=== PATIENT | male | born 1975 | race African-American/Black ===

== ENCOUNTER 2016-08-13 07:32 | Inpatient (IN) ==
--- NOTE | 2016-08-13 08:11 | Emergency Department Note ---
Megan Carlton Hilary, am scribing for, and in the presence of, Kaushal Negro MD 08: 02. Sruthi Carlton James D, MD, personally performed the services described in this documentation, ascribed by Flor Guzman in my presence, and it is both accurate and complete . Arrival - Arrival Chief Complaint: Non-Specific Stated Complaint: possible blood clot leg ED Nursing Triage Note: right leg pain - s/p CVA x 1 month ago - pt takes xaralto - SOB - pt states that he has 2 blood clots in his lungs per MD at [place] where he was when he had CVA Mode of Arrival: Wheelchair Limitations: No Limitations Source: Patient, RN Notes Reviewed Time Seen by Provider: 08/13/16 07:48 - History of Present Illness HPI Narrative: Pt is a 40 y/o black male presenting to the ED with c/o a swollen right leg which onset 2 weeks ago. Pt takes Xarelto and states that he takes it as prescribed but has only been back on it for one month. Pt confirms swelling, calf pain and SOB but denies pain in toes. Pt states that he has 2 blood clots in his lungs per MD at [place] where he was when he had CVA. No other complaints or problems stated in the ED. Pt has a PMHx of Onset (ago): week(s) Allergies/Adverse Reactions: Allergies Allergy/AdvReac Type Severity Reaction Status Date / Time lisinopril Allergy Swelling Verified 08/13/16 07:38 of Lip/Tongue/Throat Home Medications: Home Medications Medication Instructions Recorded Confirmed Type Digoxin Tab [Lanoxin Tab] 0.125 mg PO DAILY@1300 08/13/16 08/13/16 History Furosemide Tab [Lasix Tab] 80 mg PO BID DIURETIC 08/13/16 08/13/16 History Isosorbide Dinitrate 10 mg PO BID 08/13/16 08/13/16 History Metoprolol Tartrate 25 mg PO DAILY 08/13/16 08/13/16 History Rivaroxaban [Xarelto] 15 mg PO BID W/MEALS 08/13/16 08/13/16 History Spironolactone 12.5 mg PO DAILY 08/13/16 08/13/16 History hydrALAZINE TAB [Apresoline Tab] 25 mg PO TID 08/13/16 08/13/16 History Review of System - Review of System 12 point system: reviewed and no additional remarkable complaints except as stated - Review of System Constitutional: Absent: fever Respiratory: Present: respiratory distress (SOB) Musculoskeletal: Present: leg pain (right leg swelling) Medical,Surgical,& Family Hx - Medical History Cardio: History of: CHF, Hypertension Neurology: History of: Cerebrovascular Accident Respiratory: History of: Pulmonary Embolism - Social History Smoking Status: Current every day smoker Frequency of Alcohol Use: Occasionally Type of Drug Use: None Exam Physical Examination: GENERAL: This is a well-nourished, well-developed in no apparent distress. Smells of alcohol. VITAL SIGNS: Temperature: 97.1 Pulse: 110 Respiratory: 20 Blood Pressure: 131/ 103 O2SAT: 99 HEENT: Head is normocephalic and atraumatic. Pupils are equally round and reactive to light. Extraocular movement are intact. Oropharynx is benign with moist mucous membranes. NECK: Neck is soft and supple without tenderness. There are no masses. There is no lymphadenopathy. LUNGS: Lungs are clear to auscultation bilaterally. Chest rises symmetrically. There is no chest wall tenderness. CV: Heart is regular rate and rhythm without murmurs, rubs, or gallops. ABDOMEN: Abdomen is soft, non-tender to palpation. There are no abnormal masses palpated. There is no organomegaly. Bowel sounds are present and active. SKIN: Skin is warm and dry. No rash. EXTREMITIES: Patient has full range of motion without tenderness. There is edema in right lower extremity, tender to palpation in his right calf. NEUROLOGIC: Awake, alert, and oriented x4. Cranial nerves II through XII are grossly intact. There are no motorsensory deficits. PSYCHIATRIC: Normal affect. Normal mood. Vital Signs: Vital Signs Temperature 97.1 F L 08/13/16 07:38 Pulse Rate 102 H 08/13/16 09:00 Respiratory Rate 20 08/13/16 09:00 Blood Pressure 146/101 08/13/16 09:00 O2 Sat by Pulse Oximetry 99 08/13/16 09:00 Course Course Narrative: CT scan obtained from [facility] from previous hospitalization reveals that when compared to present CT pulmonary emboli are worse with increasing infiltrate/pulmonary infarct in the right lower lobe. I had a long discussion with the patient including discussing with him that he has a life-threatening problem. Patient admits that he has been noncompliant with his medications. I told the patient he need to be admitted to the hospital and needed an IVC filter. Also told the patient and he needs to discontinue alcohol use given that he needs chronic anticoagulation. The patient refused admission and signed out AMA. - Consultations Consultation #1: Discussed with hospitalist. Patient will be admitted to their service. Time: 13:17 Results - Labs CBC & BMP: 08/13/16 08:11 08/13/16 08:11 Lab Results: I have reviewed the patients labs Labs: Laboratory Tests 08/13/16 08:11 WBC 5.8 RBC 4.84 Hgb 13.3 L Hct 38.8 L MCV 80.2 L Baso % (Auto) 1.0 H Laboratory Tests 08/13/16 08/13/16 08:11 08:11 Sodium 139 Potassium 3.9 Chloride 106 Carbon Dioxide 20 L Anion Gap 16.9 H Glucose 118 H Serum Alcohol 141 - Diagnostic Findings Procedure: CT - chest: image reviewed by me, report reviewed by me (Bilateral pulmonary emboli), Ultrasound: report reviewed by me (US venous doppler LE RT: Rigth lower extremity deep venous thrombosis) Disposition Clinical Impression: Chronic anticoagulation, Alcohol abuse, Bilateral pulmonary embolism, Medical non-compliance Case discussed with: patient Disposition: Still a Patient Condition: Stable Time of Disposition: 13:16
[2016-08-13 08:24] LABS: Basophils # 0.1 10*3/uL (0.0-0.2); Eosinophils % 0.3 % (0.00-10.9); Hematocrit 38.8 VOL% (42.0-52.0); Hemoglobin 13.3 GM/DL (14.0-18.0); Immature Granulocytes % 0.3 %; Immature Granulocytes Absolute 0.02 #; Lymphocytes % 33.6 % (21.2-54.2); Mean Corpuscular HGB Conc 34.3 GM/DL (32-36); Mean Corpuscular Hemoglobin 28 PG (27-34); Mean Corpuscular Volume 80.2 FL (87-102); Mean Platelet Volume 9.6 FL (9.6-12.0); Monocytes # 0.5 10*3/uL (0.11-0.8); Monocytes % 7.8 % (1.7-12.7); Neutrophils # 3.3 10*3/uL (1.4-7.4); Platelet Count 347 T/CUMM (130-400); Red Blood Count 4.84 MC/CUMM (3.8-5.5); Red Cell Distribution Width 16.2 % (9.3-17.3); White Blood Count 5.8 T/CUMM (4-12)
--- NOTE | 2016-08-13 08:36 | Ultrasound Report ---
US venous doppler LE RT Indication: RLE edema. Comparison: None. Technique: Grayscale, spectral, and color Doppler interrogation of the right lower extremity veins was performed. Augmentation and compression was performed. Findings: Grayscale, color Doppler, and pulsed Doppler evaluation of the veins of the right lower extremity demonstrate occluding the venous thrombosis in the right superficial femoral vein and popliteal vein. IMPRESSION: Right lower extremity deep venous thrombosis. Findings discussed with Dr. Negro at end of exam. PROCEDURE INTERPRETED AT [facility] DEPARTMENT OF RADIOLOGY Final Report Signed by: Dr Obi Drake
[2016-08-13 08:37] LABS: INR 1.3; PT Patient Result 13.8 SECS; Partial Thromboplastin Time 25.9 SECS (0-40)
[2016-08-13 08:53] LABS: Calcium 8.5 MG/DL (8.5-10.1); Osmolality,Calculated 277.5 MOS/KG (273-304); Potassium 3.9 MMOL/L (3.5-5.1)
--- NOTE | 2016-08-13 12:42 | CT Report ---
Exam: CT chest with contrast, PE study Date: 08/13/2016 Comparison: 05/27/2016 Reason: Shortness of breath, DVT Technique: Axial images of the chest were obtained after administration of 80 cc of IV Omnipaque 350 intravenous contrast. Coronal reformatted images were also acquired. The study was performed per pulmonary embolism protocol. Total DLP: 426.60 Findings: The heart remains significantly enlarged with cardiac fat pads. The ascending aorta measures 41 mm in diameter with no contrast in the aorta. Multiple progressive filling defects are noted in the pulmonary arteries. The findings are more extensive in the distal right main pulmonary artery where there is a saddle embolus with extension primarily in the right upper lobe pulmonary artery. Smaller filling defects are noted in the right middle lobe, right lower lobe, left upper lobe, and left lower lobe pulmonary arteries. Mediastinal and hilar nodes which remain borderline in size to minimally enlarged. No acute osseous findings are noted. Small bilateral pleural effusions are noted with findings smaller on the right. Diffuse groundglass opacities are noted. Persistent pulmonary opacities especially in the right lower lobe with the largest finding involving a 43 mm area. Some of the additional parenchymal findings appear less prominent. Persistent tiny noncalcified pulmonary nodules are noted with additional subsegmental atelectasis Impression: Progressive bilateral pulmonary emboli with findings more pronounced on the right including a saddle embolus in the distal right main pulmonary artery. Multifocal parenchymal findings which could be related to pulmonary infarction but there are indeterminate pulmonary opacities especially in the right lower lobe which make it difficult to exclude masses. Follow-up chest CT recommended. Additional cardiomegaly, mediastinal and hilar nodes which are borderline in size to minimally enlarged, and small pleural effusions. Findings were discussed with Dr. Negro at 9:45 AM on 08/13/2016. Critical test results This CT exam was performed using one or more the following dose reduction techniques: Automated exposure control, adjustment of the MA and/or KV according to patient size, or use of iterative reconstruction technique. PROCEDURE INTERPRETED AT [facility] DEPARTMENT OF RADIOLOGY Final Report Signed by: Dr. Jennifer Berg
[2016-08-13] MEDS ORDERED: METOPROLOL TARTRATE 5 MG/5 ML VIAL IV STA (13:14)
[2016-08-13] MEDS ORDERED: METOPROLOL TARTRATE 5 MG/5 ML VIAL IV ONE (13:17)
--- NOTE | 2016-08-13 15:24 | Hospitalist History & Physical ---
<Dennis Craven - Last Filed: 08/13/16 15:10> Assessment and Plan - Time spent with patient Time spent with patient: Greater than 30 minutes Time spent discussing smoking cessation with patient: more than 10 minutes (1) DVT (deep venous thrombosis) Status: Acute Assessment and plan: Venous doppler shows right lower extremity DVT. Patient is already prescribed Xarelto and admits to medical noncompliance. He has agreed to having an IVC filter placed by IR today. We spend greater than 45 min discussing the negative effects of not taking his medication and convincing him to stay overnight for treatment and filter placement. IR was consulted and plans to place the filter today. We will continue the patient's Xarelto while here. We will also draw labs for hypercoagulability studies. Current Visit: Yes (2) Chronic anticoagulation Status: Acute Assessment and plan: Patient has been prescribed Xarelto, however he admits to medical noncompliance. INR is 1.3 today. Current Visit: Yes (3) Alcohol abuse Status: Acute Current Visit: Yes (4) Bilateral pulmonary embolism Status: Acute Current Visit: Yes (5) Medical non-compliance Status: Acute Current Visit: Yes History of Present Illness Chief complaint: SOB/rt leg pain and swelling History of present illness: Mr. Daniels is a 40 year old male with a past medical history significant for pulmonary emboli, CVA, tobaccoism and alchohol abuse who presents to the ER with complaints of shortness of breath and right leg pain with swelling x 2 weeks. The patient came to the [facility] after leaving [facility] where he was told that he has a DVT and "two clots" on his lungs. The patient says he already knew this as he has seen multiple doctors at different hospitals who have "not done anything about it" other than "give him pills". He admits to medical noncompliance stating his reasoning being "Xarelto is not good for you if you're in the sun a lot". He initially tried to leave A, but agreed to stay overnight after talking at length about the negative effects of not taking the NOAC. We offered the patient consultation with IR for possible IVC Filter placement to prevent the DVT from traveling to his lungs. On exam, the patient was noticeably suspicious. He admits to having an ongoing cough for the last four months, increasing shortness of breath, and pain and swelling in his right leg. All other systems were unremarkable. He will be admitted to the hospital medicine service for further evaluation, treatment and IVC filter placement. He is a full code. The case has been discussed with Dr. Negro, ER physician, Dr. Faulkner, radiologist, and Dr. Pisano, admitting physician. Home Medications Medication Instructions Recorded Confirmed Type Digoxin Tab [Lanoxin Tab] 0.125 mg PO DAILY@1300 08/13/16 08/13/16 History Furosemide Tab [Lasix Tab] 80 mg PO BID DIURETIC 08/13/16 08/13/16 History Isosorbide Dinitrate 10 mg PO BID 08/13/16 08/13/16 History Metoprolol Tartrate 25 mg PO DAILY 08/13/16 08/13/16 History Rivaroxaban [Xarelto] 15 mg PO BID W/MEALS 08/13/16 08/13/16 History Spironolactone 12.5 mg PO DAILY 08/13/16 08/13/16 History hydrALAZINE TAB [Apresoline Tab] 25 mg PO TID 08/13/16 08/13/16 History Allergies Allergy/AdvReac Type Severity Reaction Status Date / Time lisinopril Allergy Swelling Verified 08/13/16 07:38 of Lip/Tongue/Throat Medical,Surgical,& Family Hx - Medical History Cardio: History of: CHF, Hypertension Neurology: History of: Cerebrovascular Accident Respiratory: History of: Pulmonary Embolism - Social History Smoking Status: Current every day smoker (10-12 cigarettes daily) Frequency of Alcohol Use: Frequently Type of Drug Use: None Marital Status: Single Lives With:: Uncle Functional capacity: independent ambulation - Constitutional Constitutional: Absent: chills, excessive sweating, fever(s), headache(s) - EENT Eyes: Absent: blurry vision, loss of vision Ears: Absent: decreased hearing, ear discharge, ear pain Nose, mouth and throat: Absent: headache(s), neck pain, sore throat - Cardiovascular Cardiovascular: Present: dyspnea, dyspnea on exertion. Absent: chest pain at rest, chest pain with activity, edema, radiating jaw, neck or arm pain, palpitations - Respiratory Respiratory: Present: cough, dyspnea. Absent: wheezing, pain on inspiration - Gastrointestinal Gastrointestinal: Absent: abdominal pain, change in bowel habits, constipation, diarrhea, nausea, vomiting - Genitourinary Genitourinary: Absent: dysuria, flank pain - Musculoskeletal Musculoskeletal: Absent: back pain, myalgias - Neurological Neurological: Absent: abnormal gait - Psychiatric Psychiatric: Present: anxiety. Absent: confusion, depression - Endocrine Endocrine: Absent: cold intolerance, fatigue, heat intolerance - Hematologic/Lymphatic Hematologic/Lymphatic: Absent: easy bleeding, easy bruising Exam - Constitutional Exam: General appearance: obese, no acute distress - Head Head exam: Present: normocephalic, atraumatic - Eye Eye exam: Present: EOMI. Absent: conjunctival injection, nystagmus Pupils: Present: ALEXA, normal accommodation - ENT ENT exam: Present: normal exam, normal external ear exam - Neck Neck exam: Present: normal inspection. Absent: lymphadenopathy, tenderness, thyromegaly - Respiratory Respiratory exam: Present: decreased breath sounds. Absent: rales, rhonchi, wheezes - Cardiovascular Cardiovascular exam: Present: regular rate and rhythm. Absent: carotid bruit, gallop, rubs - GI/Abdominal GI/Abdominal exam: Present: normal bowel sounds. Absent: ascites, distended, mass - Extremities Exam Extremities exam: Present: normal inspection, normal capillary refill. Absent: edema - Back Exam Back exam: Absent: CVA tenderness (L), CVA tenderness (R) - Neurological Exam Neurological exam: Present: alert, oriented X3 - Psychiatric Psychiatric exam: Present: anxious - Skin Skin exam: Present: normal color, warm, dry Results - Labs CBC & BMP: 08/13/16 08:11 08/13/16 08:11 Lab Results: I have reviewed the past 24 hour labs - Diagnostic Findings Procedure: Chest x-ray: image reviewed by me, report reviewed by me, CT - chest : image reviewed by me, report reviewed by me <Emili Pisano - Last Filed: 08/13/16 18:07> Assessment and Plan (1) Bilateral pulmonary embolism Status: Acute Assessment and plan: Status post filter. Discussed case with Dr. Li but patient is not a candidate for a ekos. Error in the report from radiology there is no saddle embolus per discussion with Dr. Faulkner, continue xarelto. if he does not take it. Current Visit: Yes (2) Nicotine addiction Status: Acute Assessment and plan: nicotine patch Current Visit: Yes (3) Alcohol abuse Status: Acute Assessment and plan: alcohol tid with meals Current Visit: Yes (4) DVT (deep venous thrombosis) Status: Acute Assessment and plan: s/p filter today, xarelto 15 mg po bid Current Visit: Yes (5) Medical non-compliance Status: Acute Assessment and plan: this will be a constant problem whether due to alcoholism or ignorance Current Visit: Yes History of Present Illness History of present illness: Mr. Daniels is a 40 year old male seen and examined. Spent over one hour just convincing him to stay. Dr. Faulkner plans to place on IVC filter. He has a full bottle of xarelto that he was not taking. Darian hypercoagable workup in the Er. Patient intoxicated but drinks hard liquor to excess and smokes Medical,Surgical,& Family Hx - Surgical History Cardiac Surgeries: Sugical HX of: Cardiac Catheterization - Family History Family History: Reports;: Family Diabetes, Family Heart Disease Denies;: Family Stroke Exam - Constitutional Vitals: Period Temp Pulse Resp BP Sys/Crystal Pulse Ox Last 24 Hr 97.9 F 102-106 18-22 135-168/109-122 96-98 Results - Labs CBC & BMP: 08/13/16 08:11 08/13/16 08:11 - Diagnostic Findings Procedure: CT - chest: report reviewed by me (Bilateral pulmonary emboli but no evidence of saddle embolus per discussion with Dr. Faulkner.), Ultrasound: report reviewed by me (Right lower extremity DVT)
--- NOTE | 2016-08-13 15:44 | Post Interventional Procedure ---
Pre-op diagnosis: Noncompliant anticoag, PE, DVT Post-op diagnosis: same Procedure: IVC filter, right groin access Contrast: Omni 350, 20 cc Flouroscopy: 0.6 Radiologist: Jimmy Faulkner Anesthesia: local Specimens: none sent Estimated blood loss: none Complications: none Condition: stable Assessment and Plan - Time spent with patient Time spent with patient: Less than 30 minutes
[2016-08-13] MEDS ORDERED: ACETAMINOPHEN 325 MG TABLET PO PRN (16:02)
--- NOTE | 2016-08-13 16:03 | Interventional Radiology Rpt ---
IR IVC filter placement Indication: Pulmonary embolus. Right leg DVT, acute. Patient has had previous thromboembolic events and is noncompliant on outpatient anticoagulation with Xarelto. IVC FILTER PLACEMENT Description: The risks (including but not limited to IVC filter fracture, filter migration, IVC thrombosis with resulting bilateral lower extremity thrombosis, conversion from retrievable to a permanent filter), benefits and alternatives were discussed at length with the patient. All questions were answered. Informed consent was obtained. A formal timeout was performed. Maximum sterile barrier technique was used. The right groin was prepped and draped in a sterile fashion. Sonographic evaluation demonstrates a patent and compressible right common femoral vein. 5 cc 1% lidocaine was infused subcutaneously. Under sonographic guidance, a micropuncture needle was advanced into the target vein. A captured sonographic image documents the position of the needle. The needle was exchanged over a wire for a vascular dilator with the tip in the distal IVC. An inferior venacavogram was performed. Normal anatomy was present. The lowest renal vein inflow was identified. The dilator was exchanged over a wire for a Starr IVC filter sheath. The filter was then advanced and deployed such that the apex is at the lowest renal vein inflow. The deployment apparatus was removed and hemostasis achieved with manual compression. Medications: None. Contrast: Omnipaque 350, 20 cc. Fluoroscopy: 0.6 minutes. Impression: Infrarenal IVC filter placement as described. Lengthy discussion with the patient regarding retrieval of the filter later date, up to 3 months, if he is compliant on anticoagulation as an outpatient. PROCEDURE INTERPRETED AT [facility] DEPARTMENT OF RADIOLOGY Final Report Signed by: Jimmy Faulkner M.D.
[2016-08-13] MEDS: PANTOPRAZOLE 40 MG TABLET PO SCH (17:25)
[2016-08-13] MEDS: RIVAROXABAN 15 MG TABLET PO SCH ×2 (17:25→17:26)
[2016-08-13] MEDS: NICOTINE 21 MG/24 HR PATCH TRANSDERM SCH (19:04)
[2016-08-13 19:18] LABS: Albumin 2.4 G/DL (3.4-5.0); Bilirubin,Direct 0.5 MG/DL (0.0-0.20); Bilirubin,Indirect 0.5 MG/DL (0.0-1.0); Total Protein 6.5 G/DL (6.4-8.3)
[2016-08-14 05:21] LABS: Basophils # 0.1 10*3/uL (0.0-0.2); Basophils % 1.3 % (0.0-0.8); Eosinophils % 0.2 % (0.00-10.9); Immature Granulocytes % 0.2 %; Immature Granulocytes Absolute 0.01 #; Lymphocytes # 2.4 10*3/uL (1.4-4.0); Lymphocytes % 37.9 % (21.2-54.2); Mean Corpuscular HGB Conc 33.3 GM/DL (32-36); Mean Corpuscular Hemoglobin 27 PG (27-34); Mean Corpuscular Volume 81.6 FL (87-102); Mean Platelet Volume 9.8 FL (9.6-12.0); Monocytes # 0.7 10*3/uL (0.11-0.8); Monocytes % 10.5 % (1.7-12.7); Neutrophils # 3.1 10*3/uL (1.4-7.4); Neutrophils % 49.9 % (38.7-73.9); Platelet Count 331 T/CUMM (130-400); Red Blood Count 4.78 MC/CUMM (3.8-5.5); Red Cell Distribution Width 16.4 % (9.3-17.3); White Blood Count 6.2 T/CUMM (4-12)
[2016-08-14 05:56] LABS: Calcium 8.8 MG/DL (8.5-10.1); Osmolality,Calculated 275.7 MOS/KG (273-304); Potassium 4.4 MMOL/L (3.5-5.1)
[2016-08-14] MEDS: RIVAROXABAN 15 MG TABLET PO SCH (08:27)
[2016-08-14] MEDS: PANTOPRAZOLE 40 MG TABLET PO SCH (08:28)
--- NOTE | 2016-08-14 11:17 | Discharge Summary ---
Hospital Course - Hospital Course Hospital Course: 40-year-old -Finnish male presents to the emergency room with complaints of right lower extremity swelling and pain. Ultrasound showed that he had an extensive DVT in right superficial femoral vein and popliteal vein. Chest CT reveals he has bilateral pulmonary emboli with saddle embolus on the right. The films were reviewed by Dr. Faulkner and he doesn't have a saddle embolus. IVC filter was placed by Dr. Faulkner on August 13, 2016. Patient was originally diagnosed with a clot at [facility] in March and was given Xarelto but chose to not take it. Patient is an active smoker every day approximately 2 packs a day and consumes an excess amount of alcohol on a daily basis including hard liquor and beer. Patient was actively intoxicated in the emergency room. We have emphasized the importance of him taking his Xarelto. He is not requiring any supplemental oxygen at this time. While the filter is in place and only prevents large clots from floating up. If he continues to clot his leg will continue to swell. We have warned him without anticoagulation that the clots could take his life and he indicates his understanding. He still has his Xarelto that he never took for 15 mg twice a day. He will take this for 21 days and then transition to 20 mg once a day. He does not have insurance. We will send him to the [facility]. We have filled out a form to send to the drug company to see if we can get Xarelto for him for free. Patient has to complete the form as we have already done our portion. If he does not mail it in, we cannot help him. I have done a hypercoagulable workup on him which will tell us if he needs anticoagulation for life. Doubt he will be compliant with follow-up or taking his medication. The results of the hypercoagulable workup should be available in approximately 3-5 days. Discharged home - Time spent with patient Time with patient DS: Less than 30 minutes (25 min) Diagnosis - Discharge Diagnosis (1) Bilateral pulmonary embolism Status: Acute (2) Nicotine addiction Status: Acute (3) Alcohol abuse Status: Acute (4) DVT (deep venous thrombosis) Status: Acute (5) Medical non-compliance Status: Acute Discharge Plan - Discharge Data Disposition: Disch To Home/Self Care Condition at Discharge: Stable Discharge Diet: heart healthy Activity: resume usual activities as tolerated Hygiene: no restrictions Driving: other (never) - Discharge Medications New Carvedilol [Coreg] 6.25 mg PO BID #60 tablet Nicotine 21 mg/24 Hr Patch [Nicoderm CQ 21 mg/24 hr Patch] 1 patch TRANSDERM DAILY #42 patch Continue Digoxin Tab [Lanoxin Tab] 0.125 mg PO DAILY@1300 #30 tablet Rivaroxaban [Xarelto] 15 mg PO BID W/MEALS #42 Spironolactone 12.5 mg PO DAILY #30 tablet Changed Furosemide Tab [Lasix Tab] 40 mg PO DAILY #30 tablet Discontinued Metoprolol Tartrate 25 mg PO DAILY hydrALAZINE TAB [Apresoline Tab] 25 mg PO TID Isosorbide Dinitrate 10 mg PO BID - Follow Up or Referral Follow Up: [facility] [Provider Group] - 2 Weeks (follow up on lab work for hypercoagable workup ) - Forms/Instructions Additional Discharge Instructions: needs to stop smoking. Continue xarelto 15 mg po bid for 21 days then switch to xarelto 20 mg daily for 6 months. Prescription written needs to complete the form and maily it in. Gradually cut down on drinking if able. Need to follow up on blood work to determine if needs anticoagulation for life. Exam - Constitutional Vitals: Period Temp Pulse Resp BP Sys/Crystal Pulse Ox Last 24 Hr 97.6 F-98.6 F 102-106 18-22 135-168/101-125 96-100 General appearance: normal weight, no acute distress - Respiratory Respiratory exam: Present: clear to auscultation bilaterally. Absent: rhonchi, wheezes - Cardiovascular Cardiovascular exam: Present: regular rate and rhythm. Absent: systolic murmur - GI/Abdominal GI/Abdominal exam: Present: normal bowel sounds, soft. Absent: tenderness - Neurological Exam Neurological exam: Present: alert, oriented X3 Discharge Results Procedures and tests throughout hospitalization: Pending Orders 08/13/16 08:11 Phospholipid Ab, IgG/M Stat 08/13/16 14:49 Anti-Thrombin III Stat Lupus Anticoag Prof Stat Thrombophilia Prof Stat Labs on day of discharge: Labs from last 24 hours 08/14/16 08/14/16 08/13/16 05:02 05:02 18:14 WBC 6.2 RBC 4.78 Hgb 13.0 L Hct 39.0 L MCV 81.6 L MCH 27 MCHC 33.3 RDW 16.4 Plt Count 331 MPV 9.8 Neut % (Auto) 49.9 Lymph % (Auto) 37.9 [place] % (Auto) 10.5 Eos % (Auto) 0.2 Baso % (Auto) 1.3 H Neut # (Auto) 3.1 Lymph # (Auto) 2.4 [place] # (Auto) 0.7 Eos # (Auto) 0.0 Baso # (Auto) 0.1 Immature Gran % 0.2 Nucleated RBC % 0.0 Immature Gran # 0.01 Nucleated RBCs # 0.00 Sodium 138 Potassium 4.4 Chloride 106 Carbon Dioxide 23 Anion Gap 13.4 BUN 15 Creatinine 0.90 GFR Calculation 26 BUN/Creatinine Ratio 16.00 Glucose 104 Calculated Osmolality 275.7 Calcium 8.8 Total Bilirubin 1.00 Direct Bilirubin 0.50 H Indirect Bilirubin 0.5 AST 36 ALT 26 Alkaline Phosphatase 152 H Total Protein 6.5 Albumin 2.4 L DS: Provider Date of admission: 08/13/16 13:36 Primary care physician: . No PCP Attending physician on admission: Emili Pisano MD Consults: 08/13/16 16:08 Consult to Pharmacy [CONS] Routine Reason for Pharmacy Consult: Adjust Meds Renal Funct Discharging clinician: Emili Pisano MD
[2016-08-14 12:05] VITALS: BP 162/102
[2016-08-14] MEDS: NICOTINE 21 MG/24 HR PATCH TRANSDERM SCH (13:19)
--- NOTE | 2016-08-14 14:31 | ECHO Report ---
Abilio Daniels Exam Date: 08/14/2016 09:07 Referring Physician: Technologist: Danielle Sandoval RDCS Age: 40 Ht (in): 72 Wt (lb): 225 Gender: M Exam Location: [facility] Echo Indications: DVT, Chronic anticoagulation, Alcohol abuse, Bilateral pulmonary embolism, Cough, Essential (primary) hypertension, Nicotine dependence, cigarettes, uncomplicated BP: 135 / 109 HR: 111 Rhythm: Sinus Technical Quality: IMPRESSIONS 1. Left ventricle is moderately dilated with severe global hypokinesis and ejection fraction of 15%. 2. Mildly dilated right ventricle with global hypokinesis. 3. Moderately dilated right and left atria. 4. Mild mitral valve regurgitation but otherwise normal valve. 5. Moderate tricuspid valve regurgitation but morphologically normal valve. 6. Moderate pulmonic valve regurgitation. 7. Moderate to severely elevated right-sided pressures. MEASUREMENTS (Male / Female) Normal Values 2D ECHO LV Diastolic Diameter PLAX 6.6 cm 4.2 - 5.9 / 3.9 - 5.3 cm LV Systolic Diameter PLAX 5.1 cm LV Fractional Shortening PLAX 23.0 % IVS Diastolic Thickness 1.4 cm 0.6 - 1.0 / 0.6 - 0.9 cm LVPW Diastolic Thickness 1.1 cm 0.6 - 1.0 / 0.6 - 0.9 cm RV Internal Dim ED PLAX 3.7 cm Aortic Root Diameter 3.5 cm LA Systolic Diameter LX 4.2 cm 3.0 - 4.0 / 2.7 - 3.8 cm DOPPLER TR Peak Velocity 366.0 cm/s TR Peak Gradient 53.6 mmHg FINDINGS Left Ventricle Moderately increased left ventricular cavity size. Mild left ventricular hypertrophy. Left ventricular ejection fraction is estimated at 15 %. Right Ventricle Mildly increased right ventricular size with global hypokinesis. Right Atrium Moderately increased right atrial size. Left Atrium Moderately increased left atrial size. Mitral Valve Morphologically normal mitral valve. Mild mitral valve regurgitation. Aortic Valve Morphologically normal aortic valve without significant sclerosis or stenosis. There is no aortic regurgitation. Tricuspid Valve Morphologically normal tricuspid valve. Moderate tricuspid valve regurgitation. Tricuspid regurgitation velocities suggest a PAP of 64 mmHg. Pulmonic Valve Morphologically normal pulmonic valve. Moderate pulmonary valve regurgitation. Pericardium Normal pericardium without effusion. Aorta Normal ascending aorta dimension. Jimmy Coello MD (Electronically Signed) Final Date: 14 Aug 2016 14:28
[2016-08-16 11:45] LABS: DRVVT Confirmation 0.9 ratio (0.0 - 1.1); DRVVT Mix Ratio (Mayo Reflex) 1.2 ratio (0.0 - 1.1); PT Mix 1:1 (Mayo Reflex) 12.9 sec
[2016-08-16 13:50] LABS: Phospholipid Ab IgM, S < 9.4 MPL
[2016-08-21 14:32] LABS: DRVVT Screen Ratio 1.5
[2016-08-21 14:36] LABS: Protein C Activity Plasma 57 %
[2016-08-21 14:41] LABS: Thrombin Time (Bovine), P 20
[2016-08-21 14:42] LABS: Fibrinogen, P 485
[2016-08-21 15:08] LABS: INR 1.8
[2016-08-23 13:41] LABS: PTNT Reviewed By SEE COMMENTS
[2016-08-23 14:46] LABS: Coag Factor VII Assay, P 33
== END 2016-08-14 13:20 | disposition home or self-care (01) | DRG 252 ==
LOC: N.ED 07:32 → N.EDINP 13:36 → N.TELEN 16:14
PROVIDERS: ADMIT Internal Medicine; ATTEND Internal Medicine

== ENCOUNTER 2016-11-27 17:12 | Inpatient (IN) ==
[2016-11-27] MEDS ORDERED: ALBUTEROL/IPRATROPIUM 3 ML NEB RESP TX STA (17:33)
[2016-11-27] MEDS ORDERED: methylPREDNISolone SOD SUC 125 MG/2 ML VIAL IV STA (17:33)
--- NOTE | 2016-11-27 17:38 | Emergency Department Note ---
Arrival - Arrival Chief Complaint: Shortness of Breath ED Nursing Triage Note: pt left [facility] from [place] yesterday. pt c/o sob and dry cough. states sob is worse with walking around Mode of Arrival: Stretcher Limitations: No Limitations Source: Patient Time Seen by Provider: 11/27/16 17:33 - History of Present Illness HPI Narrative: This 41-year-old black male presents with complaints of shortness of breath with dyspnea on exertion and at rest without chest pain, nausea, vomiting, chills, fever, or purulence. The patient does complain of a dry cough and does have a history of pulmonary embolus diagnosed 18 months ago and treated for 1 year with Xarelto. Most notable is the fact that he left [facility] yesterday AMA after 2 weeks in hospital for treatment of pneumonia and other respiratory problems. Currently the patient appears in no acute medical distress. Subsequent contact with [facility] records reveals the patient was not in that hospital the last 2 weeks but was hospitalized there in June. Onset (ago): week(s) (Patient presents 2 weeks post onset of symptoms) Allergies/Adverse Reactions: Allergies Allergy/AdvReac Type Severity Reaction Status Date / Time lisinopril Allergy Swelling Verified 08/13/16 07:38 of Lip/Tongue/Throat Home Medications: Home Medications Medication Instructions Recorded Confirmed Type Carvedilol [Coreg] 6.25 mg PO BID #60 tablet 08/14/16 11/27/16 Rx Digoxin Tab [Lanoxin Tab] 0.125 mg PO DAILY@1300 #30 tablet 08/14/16 11/27/16 Rx Rivaroxaban [Xarelto] 15 mg PO BID W/MEALS #42 08/14/16 11/27/16 Rx Aspirin EC Tab 81 mg PO BID 11/27/16 11/27/16 History Furosemide Tab [Lasix Tab] 40 mg PO QAM 11/27/16 11/27/16 History Spironolactone 12.5 mg PO QAM 11/27/16 11/27/16 History Review of System - Review of System 12 point system: reviewed and no additional remarkable complaints except as stated - Review of System Constitutional: Present: as per HPI Respiratory: Present: as per HPI Cardiovascular: Present: as per HPI Gastrointestinal: Present: as per HPI Medical,Surgical,& Family Hx - Medical History Cardio: History of: CHF, Hypertension Neurology: History of: Cerebrovascular Accident Respiratory: History of: Pulmonary Embolism - Surgical History Cardiac Surgeries: Sugical HX of: Cardiac Catheterization - Family History Family History: Reports;: Family Diabetes, Family Heart Disease, Family Hypertension Denies;: Family Stroke - Social History Smoking Status: Current every day smoker Frequency of Alcohol Use: Occasionally Type of Drug Use: None Exam Physical Examination: GENERAL: Well developed, well nourished black male in no acute distress. HEENT: Normocephalic. No trauma. Moist mucous membranes. EOMI. PERRLA. ENT NML NECK: Supple. No adenopathy. CARDIAC: Regular. No murmurs. Heart rate 102 CHEST: Scattered expiratory rhonchi. No respiratory distress. O2 sat 94% ABDOMEN: Soft. Nontender. Active bowel sounds. EXTREMITIES: No trauma. Normal ROM. No pedal edema. SKIN: No diaphoresis. No rash. NEURO: Alert. Oriented 3. 3 out of 5 right upper extremity and right lower extremity strength compared to 5 out of 5 left-sided extremities, a constant finding since stroke 4 years ago. Vital Signs: Vital Signs Temperature 97.1 F L 11/27/16 17:18 Pulse Rate 99 H 11/27/16 18:20 Respiratory Rate 19 11/27/16 18:20 Blood Pressure 129/90 11/27/16 18:15 O2 Sat by Pulse Oximetry 98 11/27/16 18:20 Course - Reevaluation(s) Reevaluation #1: Advised patient to the need for hospitalization given his pulmonary situation. - Consultations Consultation #1: Discussed with hospitalist service who will admit for further evaluation treatment. Results - Labs CBC & BMP: 11/27/16 17:43 11/27/16 17:43 Labs: I have reviewed the laboratory and noted the bump in troponins and increased BNP. - Impressions EKG: Sinus rhythm at 99 with left atrial enlargement, normal AK interval, normal QRS duration, as well as evidence of old inferior AK. Diffuse nonspecific ST changes with no acute injury pattern noted. - Diagnostic Findings Procedure: Chest x-ray: image reviewed by me, report reviewed by me ( Cardiomegaly/right middle and lower lobe infiltrate), CT - chest: image reviewed by me, report reviewed by me (CTA revealed no acute PTE but chronic thrombus to the right lower lobe pulmonary artery but more significant is right infrahilar mass with cavity as well as severe cardiomegaly.) Disposition Clinical Impression: Right infrahilar cavitary mass, Congestive heart failure, Recent PTE Case discussed with: patient Disposition: Still a Patient Condition: Guarded Time of Disposition: 21:37
[2016-11-27 17:53] LABS: Basophils # 0.1 10*3/uL (0.0-0.2); Basophils % 0.5 % (0.0-0.8); Hemoglobin 13.8 GM/DL (14.0-18.0); Immature Granulocytes % 0.8 %; Immature Granulocytes Absolute 0.08 #; Lymphocytes % 20.6 % (21.2-54.2); Mean Corpuscular HGB Conc 35.4 GM/DL (32-36); Mean Corpuscular Hemoglobin 28 PG (27-34); Mean Corpuscular Volume 78.3 FL (87-102); Mean Platelet Volume 10.2 FL (9.6-12.0); Monocytes # 1.4 10*3/uL (0.11-0.8); Neutrophils # 6.3 10*3/uL (1.4-7.4); Neutrophils % 64.1 % (38.7-73.9); Platelet Count 307 T/CUMM (130-400); Red Blood Count 4.98 MC/CUMM (3.8-5.5); Red Cell Distribution Width 16.6 % (9.3-17.3); White Blood Count 9.8 T/CUMM (4-12)
[2016-11-27] MEDS ORDERED: methylPREDNISolone SOD SUC 125 MG/2 ML VIAL ONE (17:57)
--- NOTE | 2016-11-27 18:07 | EKG Report ---
Stationary ECG Study 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
[2016-11-27 18:13] LABS: Alanine Aminotransferase 30 U/L (16-61); Albumin 1.8 G/DL (3.4-5.0); Alkaline Phosphatase 129 U/L (45-117); Aspartate Amino Transferase 40 U/L (0-37); Blood Urea Nitrogen 14 MG/DL (7-18); Calcium 8.3 MG/DL (8.5-10.1); Glucose 77 MG/DL (74-106); Osmolality,Calculated 265.4 MOS/KG (273-304); Potassium 3.9 MMOL/L (3.5-5.1); Sodium 133 MMOL/L (136-145); Total Protein 7.1 G/DL (6.4-8.3)
--- NOTE | 2016-11-27 18:16 | XRay Report ---
XR chest 2V Indication: Shortness of breath. Chest 2 views: Significant cardiomegaly is again shown, when compared to CT PE study of 08/13/2016. There is increase in opacification of the right lung base when compared to the prior exam. Left lung is clear. Impression: Stable moderately severe cardiomegaly. Right lower lobe and/or right middle lobe pneumonia. PROCEDURE INTERPRETED AT [facility] DEPARTMENT OF RADIOLOGY Final Report Signed by: Jimmy Faulkner M.D.
[2016-11-27 18:17] LABS: Troponin I Only 0.101 NG/ML (0.00-0.045)
[2016-11-27 18:28] LABS: INR 1.3; PT Patient Result 13.8 SECS; Partial Thromboplastin Time 28.5 SECS (0-40)
[2016-11-27 18:48] LABS: Apearance,Urine CLEAR (Clear); Bilirubin,Urine Negative (Negative); Blood, Urine Negative (Negative); Glucose,Urine (UA) Negative (Negative); Ketones,Urine Negative (Negative); Nitrite,Urine Negative (Negative); Protein,Urine Negative; RBC,Urine <1 /HPF (0-4); Squamous Epithelial Cell,Urine Occasional /HPF (0-10); Urine Color Yellow (Yellow); Urine Specific Gravity 1.006 (1.001-1.035); Urine Urobilinogen < 2.0 EU/DL (0.2-1.0); WBC,Urine 1 /HPF (0-6)
[2016-11-27 18:57] LABS: Barbiturates Screen,Urine Negative (Negative); Benzodiazepines Screen,Urine Negative (Negative); Cannabinoid Screen,Urine Negative (Negative); Opiate Screen,Urine Negative (Negative); Phencyclidine Screen,Urine Negative (Negative)
[2016-11-27 19:00] LABS: D-Dimer 4.8 MG/L FEU
[2016-11-27] MEDS ORDERED: cefTRIAXone 1,000 MG in SODIUM CHLORIDE 0.9% 100 ML IV STA (19:31)
[2016-11-27] MEDS ORDERED: AZITHROMYCIN INJ 500 MG in SODIUM CHLORIDE 0.9% 250 ML IV STA (19:34)
[2016-11-27] MEDS ORDERED: cefTRIAXone 1,000 MG VIAL ONE (19:36)
[2016-11-27] MEDS ORDERED: SODIUM CHLORIDE 0.9% 100 ML IV ONE (19:36)
[2016-11-27] MEDS ORDERED: AZITHROMYCIN 500 MG VIAL IV ONE (19:36)
--- NOTE | 2016-11-27 21:02 | CT Report ---
CT chest PE study Indication: Shortness of breath and chest pain. CT CHEST WITH CONTRAST, PE PROTOCOL DLP: 333 mGy*cm. One or more of the following dose reduction techniques was used: Automated exposure control, adjustment of the mA and/or kV according the patient size, or use of iterative reconstruction techniques. Comparison: 08/13/2016 Technique: Axial CT images of the chest were obtained during the pulmonary arterial phase of contrast injection. Coronal reconstructions were provided. Omnipaque 350, 80 cc. Findings: Severe cardiomegaly is unchanged from the earlier study. Eccentric chronic thrombus within the right lower lobe pulmonary artery is present, also similar to the previous exam. The thrombus in the right upper lobe on the prior examination has resolved. No acute pulmonary artery filling defects or stones centrally, lobar or segmental levels. Main pulmonary artery is dilated measuring 41 mm diameter, unchanged. Descending thoracic aortic origin 41 mm diameter, unchanged. Aortic arch is elongated. Descending thoracic aorta is normal in size. There is a relatively well-defined collection at the posterior right lung base measuring 85 x 55 mm in size, presumably a loculated pleural fluid collection. There is a parenchymal opacification of the infrahilar right lower lobe measuring 55 x 45 mm in size, with central lucency suspicious for cavitation. Right upper lobe, and the left lung are clear except for mild left lower lobe atelectasis. No bone lesions. Limited views of the upper abdomen appear grossly unremarkable. Impression: 1. No acute PE identified. Chronic thrombus right lower lobe pulmonary artery is present similar to the previous exam. Resolution of the right upper lobe PE from 08/13/2016. 2. Right infrahilar masslike density with central cavitation, concerning for pneumonia measuring 55 x 45 mm in size. Loculated pleural fluid collection posterior right lung base measuring 85 x 55 mm in size. 3. Severe cardiomegaly, unchanged. Dilated main pulmonary artery and minimally dilated descending thoracic aorta, both unchanged. PROCEDURE INTERPRETED AT [facility] DEPARTMENT OF RADIOLOGY Final Report Signed by: Jimmy Faulkner M.D.
[2016-11-28] MEDS ORDERED: ZALEPLON 5 MG CAPSULE PO PRN (00:06)
[2016-11-28] MEDS ORDERED: ACETAMINOPHEN 325 MG TABLET PO PRN (00:06)
[2016-11-28] MEDS ORDERED: ONDANSETRON 4 MG/2 ML VIAL IV PRN (00:06)
[2016-11-28] MEDS ORDERED: DOCUSATE SODIUM 100 MG CAPSULE PO PRN (00:06)
[2016-11-28] MEDS ORDERED: PNEUMOCOCCAL VACCINE (23 VALENT) 0.5 ML VIAL IM ONE (00:32)
[2016-11-28] MEDS ORDERED: ALBUTEROL/IPRATROPIUM 3 ML NEB RESP TX PRN (00:42)
--- NOTE | 2016-11-28 01:06 | Hospitalist History & Physical ---
Assessment and Plan - Time spent with patient Time spent with patient: Greater than 30 minutes (1) Pneumonia Status: Acute Assessment and plan: Admit to hospitalist services. Consult pulmonology. Obtain sputum culture. O2 per unit protocol. Levaquin 750 mg IV Q24 hours. Zosyn 3.375 Q6 hours. Blood cultures obtained in ED; follow. CT scan showed cavitation; Quantiferon-TB Gold, TB skin test, airborne precautions. HIV screen. Repeat CBC in AM. Current Visit: Yes (2) CHF (congestive heart failure) Status: Chronic Assessment and plan: Elevated troponin in ED at 0.101. No troponin in system for comparison. Repeat serial troponins. Elevated BNP in ED at 455. No BNP in system for comparison. Repeat in AM. Continue Coreg 6.25 mg BID. Continue Digoxin 0.125 mg daily. Continue Lasix 40 mg QAM. Continue Spironolactone 12.5 mg QAM. Repeat BMP in AM. Current Visit: Yes (3) HTN (hypertension) Status: Chronic Assessment and plan: Continue Coreg 6.25 mg PO BID. Continue Lasix 40 mg QAM. Continue Spironolactone 12.5 mg QAM. Continue to monitor. Current Visit: Yes (4) DVT prophylaxis Status: Acute Assessment and plan: Weight based Lovenox 90 mg SQ BID. Current Visit: Yes (5) History of pulmonary embolism Status: Ruled-out Assessment and plan: CT performed in ED negative for acute PE. Weight based lovenox at 90 mg SQ BID. Current Visit: Yes (6) Hyperglycemia Status: Acute Assessment and plan: Patient denies history of DM and takes no medications for DM. HA1C in AM. Repeat BMP in AM. Current Visit: Yes History of Present Illness Chief complaint: Shortness of breath History of present illness: Mr. Daniels is a 41 year old male who reports a history of CHF, HTN, PE, five TIAs and three CVAs, as well as IVC filter placement presented to the ED today with complaints of worsening shortness of breath and frequent cough with minimal sputum production. Mr. Daniels states that he was treated at [facility] for the last 2 weeks for pneumonia, was released yesterday, and then began to develop increasing shortness of breath today. However, ERP report shows that an investigation into records from [facility] indicates that his last admission there was in June. Report from CT chest indicated unchanged cardiomegaly and excluded acute PE, but showed a right infrahilar mass-like density with central cavitation measuring 55 x 45 mm in size and loculated pleural fluid collection in the right posterior lung base measuring 85 x 55 mm. WBC are WNL, and he is afebrile with O2 sats at 97 % on 2L of O2. Hospitalist services were consulted for further evaluation and management, and the patient will be admitted to a monitored bed. Home Medications Medication Instructions Recorded Confirmed Type Carvedilol [Coreg] 6.25 mg PO BID #60 tablet 08/14/16 11/27/16 Rx Digoxin Tab [Lanoxin Tab] 0.125 mg PO DAILY@1300 #30 tablet 08/14/16 11/27/16 Rx Rivaroxaban [Xarelto] 15 mg PO BID W/MEALS #42 08/14/16 11/27/16 Rx Aspirin EC Tab 81 mg PO BID 11/27/16 11/27/16 History Furosemide Tab [Lasix Tab] 40 mg PO QAM 11/27/16 11/27/16 History Spironolactone 12.5 mg PO QAM 11/27/16 11/27/16 History Allergies Allergy/AdvReac Type Severity Reaction Status Date / Time lisinopril Allergy Swelling Verified 08/13/16 07:38 of Lip/Tongue/Throat Medical,Surgical,& Family Hx - Medical History Cardio: History of: CHF, Hypertension Neurology: History of: Cerebrovascular Accident, TIA Respiratory: History of: Pulmonary Embolism Hematology: History of: Clotting Problems - Surgical History Cardiac Surgeries: Sugical HX of: Cardiac Catheterization Additional Surgical History: IVC filter placement - Family History Family History: Reports;: Family Diabetes, Family Heart Disease, Family Hypertension Denies;: Family Stroke - Social History Smoking Status: Current every day smoker (1/2 ppd) Have you smoked in the last 12 months: Yes Time spent discussing smoking cessation with patient: 3 to 10 minutes Frequency of Alcohol Use: Occasionally Type of Drug Use: None Marital Status: Single Lives With:: uncle Functional capacity: independent ambulation 12 point system: reviewed and no additional remarkable complaints except as stated - Constitutional Constitutional: Present: chills. Absent: fever(s) - EENT Eyes: Absent: blurry vision, diplopia Ears: Absent: decreased hearing, ear pain Nose, mouth and throat: Absent: headache(s), nasal congestion, sore throat - Cardiovascular Cardiovascular: Present: dyspnea, dyspnea on exertion, edema. Absent: chest pain at rest, orthopnea, palpitations - Respiratory Respiratory: Present: cough, dyspnea, wheezing. Absent: hemoptysis - Gastrointestinal Gastrointestinal: Absent: diarrhea, nausea, vomiting - Genitourinary Genitourinary: Absent: dysuria, flank pain, urinary frequency - Musculoskeletal Musculoskeletal: Absent: arthralgias, joint swelling, muscle weakness, myalgias - Neurological Neurological: Absent: numbness, paresthesias - Psychiatric Psychiatric: Absent: anxiety, depression - Endocrine Endocrine: Absent: polydipsia, polyphagia, polyuria - Hematologic/Lymphatic Hematologic/Lymphatic: Absent: easy bleeding, easy bruising Exam - Constitutional Vitals: Period Temp Pulse Resp BP Sys/Crystal Pulse Ox Last 24 Hr 96.8 F-97.1 F 94-104 19-22 129-134/82-95 94-100 Exam: Constitutional System: Afebrile. Awake, alert and oriented x 3. No distress. No tremulousness. Head: Normocephalic, atraumatic. Ears, Nose and Throat System: No pain or tenderness. No epistaxis or discharge Eyes System: Pupils equal, round, and reactive. Extraocular muscles intact. Neck: Supple, without adenopathy, No jugular venous distention. No thyromegaly, neck mass, or prior surgery apparent. Respiratory System: Diminished posterior breath sounds throughout, but more so on right. Faint right expiratory wheezing. Occasional cough noted. Cardiovascular System: Heart with regular rate and rhythm. No murmur. GI System: Abdomen soft, nontender. Normo active bowel sounds present. Musculoskeletal System: Bilateral ankle edema noted. Full distal pulses. Normal capillary refill. Neurological System: No discernable sensory deficit. No aphasia Psychiatric System: Conversation is rational Results - Labs CBC & BMP: 11/28/16 02:06 11/28/16 02:06 Lab Results: I have reviewed the past 24 hour labs
[2016-11-28] MEDS: LEVOFLOXACIN INJ 750 MG in PREMIX 1 EACH IV SCH (01:30)
[2016-11-28 02:15] LABS: Basophils % 0.1 % (0.0-0.8); Hematocrit 40.9 VOL% (42.0-52.0); Hemoglobin 14.6 GM/DL (14.0-18.0); Immature Granulocytes % 0.4 %; Immature Granulocytes Absolute 0.04 #; Lymphocytes # 0.7 10*3/uL (1.4-4.0); Lymphocytes % 7.3 % (21.2-54.2); Mean Corpuscular HGB Conc 35.7 GM/DL (32-36); Mean Corpuscular Hemoglobin 28 PG (27-34); Mean Corpuscular Volume 78.4 FL (87-102); Mean Platelet Volume 10.1 FL (9.6-12.0); Monocytes # 0.1 10*3/uL (0.11-0.8); Monocytes % 1.2 % (1.7-12.7); Neutrophils # 8.9 10*3/uL (1.4-7.4); Platelet Count 303 T/CUMM (130-400); Red Blood Count 5.22 MC/CUMM (3.8-5.5); Red Cell Distribution Width 16.4 % (9.3-17.3); White Blood Count 9.8 T/CUMM (4-12)
[2016-11-28 02:34] LABS: Calcium 8.5 MG/DL (8.5-10.1); Osmolality,Calculated 276.4 MOS/KG (273-304); Potassium 4.1 MMOL/L (3.5-5.1)
[2016-11-28 02:39] LABS: Troponin I Only 0.061 NG/ML (0.00-0.045)
[2016-11-28] MEDS: ENOXAPARIN 100 MG/ML SYRINGE SUBCUT SCH ×2 (03:09→14:08)
[2016-11-28 05:06] LABS: Giant Platelets Few; Hypochromasia Slight; Lymphocytes 7 % (20-55); Platelet Estimate Adequate; Segmented Neutrophils 91 % (50-85); Total Cells Counted 100
[2016-11-28] MEDS: PIPERACILLIN/TAZOBACTAM 3,375 MG in SODIUM CHLORIDE 0.9% 100 ML IV SCH ×3 (06:26→21:08)
[2016-11-28 06:38] LABS: Troponin I Only 0.059 NG/ML (0.00-0.045)
[2016-11-28 06:57] LABS: HIV Antigen/Antibody Result Nonreactive (Nonreactive)
--- NOTE | 2016-11-28 07:35 | Pulmonology Consult Note ---
Assessment and Plan (1) Bilateral pulmonary embolism Status: Acute Assessment and plan: Was noted on CT 3 months ago to have bilateral emboli. IVC filter placed at that time. Xarelto prescribed. Patient relates that he is not able to bite because it is expensive. He was set up to follow-up with [facility]. He needs help getting his medications. Needs to be on Medicaid at least. Coumadin would be difficult in him due to his alcohol history and noncompliance history. The right lower lobe abnormalities may be sequelae of previous pulmonary embolism with pulmonary infarction. Current Visit: No (2) Medical non-compliance Status: Acute Assessment and plan: Not taking anticoagulants despite being told that he may without taking them based on Dr. Pisano's progress note from last admission. Current Visit: No (3) DVT (deep venous thrombosis) Status: Acute Assessment and plan: Has IVC umbrella. Taking only aspirin. Current Visit: No (4) Nicotine addiction Status: Acute Assessment and plan: Increased risk for DVT. Current Visit: No (5) Pneumonia Status: Acute Assessment and plan: He has had chills and coughing up phlegm. Cavitary infiltrate in the lower part of the right lung may well be pneumonia. Agree with empiric antibiotics. Check sputum culture. Needs pleural fluid going to be sure he does not have an empyema. May require bronchoscopy if he does not respond. Current Visit: Yes (6) CHF (congestive heart failure) Status: Chronic Assessment and plan: Has elevated BNP. Echo pending. Current Visit: Yes History of Present Illness Chief complaint: Shortness of breath chills cough History of present illness: Mr. Daniels is a 41 year old male who says he has been sick for about 2 weeks. He has had chills and a cough. Says he does not cough up the phlegm he just swallows it so he does not know what color it is. Does not know if he is actually had fever. He had a pulmonary embolus about 8 months ago at [place]. Subsequently found to have another one about 3 months ago and had an IVC filter placed. He is been noncompliant with taking his medications. He is not able to buy the medicines. Apparently has a history of alcohol abuse. He is an everyday smoker too. Home Medications Medication Instructions Recorded Confirmed Type Carvedilol [Coreg] 6.25 mg PO BID #60 tablet 08/14/16 11/27/16 Rx Digoxin Tab [Lanoxin Tab] 0.125 mg PO DAILY@1300 #30 tablet 08/14/16 11/27/16 Rx Rivaroxaban [Xarelto] 15 mg PO BID W/MEALS #42 08/14/16 11/27/16 Rx Aspirin EC Tab 81 mg PO BID 11/27/16 11/27/16 History Furosemide Tab [Lasix Tab] 40 mg PO QAM 11/27/16 11/27/16 History Spironolactone 12.5 mg PO QAM 11/27/16 11/27/16 History Allergies Allergy/AdvReac Type Severity Reaction Status Date / Time lisinopril Allergy Swelling Verified 08/13/16 07:38 of Lip/Tongue/Throat 12 point system: reviewed and no additional remarkable complaints except as stated - Constitutional Constitutional: Present: chills - Cardiovascular Cardiovascular: Present: dyspnea, dyspnea on exertion, edema - Respiratory Respiratory: Present: cough, dyspnea, dyspnea on exertion Exam (Pulmonay) H&P - Constitutional Vitals: Period Temp Pulse Resp BP Sys/Crystal Pulse Ox Last 24 Hr 96.2 F-97.1 F 94-104 - 117-134/76-95 94-100 Exam: Patient's alert afebrile. Pupils react to light. Throat is clear. Neck supple no bruits. Chest reveals some decreased breath sounds at the right base and dullness. Few scattered rhonchi. Heart normal rate and rhythm no murmurs. Abdomen soft nontender no masses. Extremities no clubbing or cyanosis trace of edema. Calves nontender Medical,Surgical,& Family Hx - Medical History Cardio: History of: CHF, Hypertension Neurology: History of: Cerebrovascular Accident, TIA Respiratory: History of: Pulmonary Embolism Hematology: History of: Clotting Problems - Surgical History Cardiac Surgeries: Sugical HX of: Cardiac Catheterization - Family History Family History: Reports;: Family Diabetes, Family Heart Disease, Family Hypertension Denies;: Family Stroke - Social History Smoking Status: Current every day smoker (1/2 ppd) Frequency of Alcohol Use: Occasionally Type of Drug Use: None Results - Labs CBC & BMP: 11/28/16 02:06 11/28/16 02:06 Lab Results: I have reviewed the past 24 hour labs - Diagnostic Findings Procedure: Chest x-ray: image reviewed by me (Right lower lobe infiltrate with loculated pleural effusion, cardiomegaly), CT - chest: image reviewed by me ( Loculated right lower pleural effusion posteriorly. Cavitary infiltrate right lower lobe right middle lobe area. Emboli right lower lobe nothing new.)
[2016-11-28] MEDS ORDERED: ENOXAPARIN 40 MG/0.4 ML SYRINGE SUBCUT SCH (09:00)
--- NOTE | 2016-11-28 10:41 | ECHO Report ---
Abilio Daniels Exam Date: 11/28/2016 09:07 Referring Physician: Technologist: Iris Pope Age: 41 Ht (in): 72 Wt (lb): 187 Gender: M Exam Location: [facility] Echo Indications: CHF, HTN, pneumonia, Hx. Pulmonary Embolis, hyperglycemia BP: 128 / 91 HR: 86 Rhythm: Sinus Technical Quality: average IMPRESSIONS Left ventricular ejection fraction is estimated at 15 %. Mild concentric left ventricular hypertrophy with Grade 3 diastolic dysfunction. Left ventricular apical mass and underlying associated akinesis consistent with thrombus. Tricuspid regurgitation velocities suggest a RVSP of 25 mmHg + RAP. MEASUREMENTS (Male / Female) Normal Values 2D ECHO LV Diastolic Diameter PLAX 6.2 cm 4.2 - 5.9 / 3.9 - 5.3 cm LV Systolic Diameter PLAX 5.7 cm LV Fractional Shortening PLAX 8.5 % IVS Diastolic Thickness 1.2 cm 0.6 - 1.0 / 0.6 - 0.9 cm LVPW Diastolic Thickness 1.3 cm 0.6 - 1.0 / 0.6 - 0.9 cm Aortic Root Diameter 3.0 cm LA Systolic Diameter LX 3.2 cm 3.0 - 4.0 / 2.7 - 3.8 cm DOPPLER TR Peak Velocity 250.0 cm/s TR Peak Gradient 25.0 mmHg FINDINGS Left Ventricle Increased left ventricular cavity size. Mild concentric left ventricular hypertrophy with Grade 3 diastolic dysfunction. Left ventricular apical mass and underlying associated akinesis consistent with thrombus. Left ventricular ejection fraction is estimated at 15 %. There is both systolic and diastolic flattening of the IVS suggesting right sided pressure and volume overload. The right sided pressure was NOT demostrated to be high in this study. Right Ventricle Mild - modeately increased right ventricular size. Right Atrium The right atrium is mildly enlarged. Left Atrium Normal left atrial size. Mitral Valve Morphologically normal mitral valve. Trace mitral valve regurgitation. Aortic Valve The aortic valve is trileaflet and has normal motion. Tricuspid Valve Morphologically normal tricuspid valve. Trace to mild tricuspid valve regurgitation. Tricuspid regurgitation velocities suggest a RVSP of 25 mmHg + RAP. Pulmonic Valve Morphologically normal pulmonic valve. Trace pulmonary valve regurgitation. Pericardium No pericardial effusion. Aorta Normal size aortic root and proximal ascending aorta. Mira Cain (Electronically Signed) Final Date: 28 November 2016 10:40
[2016-11-28 11:09] LABS: Lymphocytes,Pleural Fluid 6 %; Monocytes,Pleural Fluid 6 %; Neutrophils,Pleural Fluid 88 %
[2016-11-28 11:10] LABS: RBC,Pleural Fluid 3906 T/CUMM
[2016-11-28] MEDS: PANTOPRAZOLE 40 MG TABLET PO SCH (11:10)
[2016-11-28] MEDS: FUROSEMIDE 40 MG TABLET PO SCH (11:10)
[2016-11-28] MEDS: ASPIRIN EC 81 MG TABLET PO SCH ×2 (11:11→21:07)
[2016-11-28] MEDS: CARVEDILOL 6.25 MG TABLET PO SCH ×2 (11:11→21:09)
[2016-11-28] MEDS: SPIRONOLACTONE 25 MG TABLET PO SCH (11:11)
--- NOTE | 2016-11-28 11:38 | Cardiology Consult Note ---
Assessment and Plan - Time spent with patient Time spent with patient: Greater than 30 minutes (Exam chart reviewed documentation and orders) (1) Left ventricular thrombus Status: Chronic Assessment and plan: This does not appear to be acute the patient actually thinks he is may be been told that he has this before. This is likely the source of his TIAs and strokes. I think he needs anticoagulation for life. He appears to clearly have some sort of hypercoagulable state that has not apparently not been documented Current Visit: Yes (2) Hypercoagulable state Status: Chronic Current Visit: Yes (3) Cardiomyopathy Status: Chronic Assessment and plan: He states that he had normal coronaries at [facility] this may be related to alcohol or other source of nonischemic cardiomyopathy. He appears to have regional wall motion abnormality this may be related his hypercoagulable situation. I would like to see the cath films or report before making final decision Current Visit: Yes (4) HTN (hypertension) Status: Chronic Current Visit: Yes Qualifiers: Hypertension type: essential hypertension Qualified Code(s): I10 - Essential (primary) hypertension (5) Alcohol abuse Status: Chronic Current Visit: No (6) Medical non-compliance Status: Chronic Current Visit: No (7) Nicotine addiction Status: Chronic Current Visit: No Qualifiers: Nicotine product type: cigarettes History of Present Illness - Data of Consult Patient: new to practice Consult date: 11/28/16 Requesting Physician: Andre Deshpande - Consult Narrative Reason for consult: LV thrombus History of present illness: Mr. Daniels is a 41 year old male with extensive past medical history who is admitted for shortness of breath he has cavitary lesions in his lungs. Routine transthoracic echo was performed today family has a severely depressed EF with apical akinesis and large apical thrombus in the left ventricle. Dr. Deshpande and order this transthoracic echo when I read today I called and notified him of the findings and he requests that we see. The patient has a history of hypercoagulable state with recurrent DVT TIAs and stroke. He has IVC filter placed. He states that he has been aware of a cardiomyopathy for some time he states that he was cath of the [facility] in March 2016 and I told him that his arteries were "okay." The patient is now admitted for dyspnea with signs and symptoms of heart failure as well as abnormality on his chest x-ray which is being evaluated at this time. The patient states that he has been unable to be anticoagulated because he is unable to purchase novel oral anticoagulants and he is unable to take warfarin because of inability to reliably get back and forth to the doctor for INR checks. [place] he resides with his uncle neither of them which have a car. The patient is in the process of getting Medicaid and Medicare disability. He states that he has been on Xarelto but it cost him $600 a month he had to stop. He is scheduled to be seen at the [facility] on Saturday of this week to get assistance. He denies angina but has severe dyspnea and some orthopnea. CC: Micheal Don MD - Home Medications and Allergies Home Medications: Home Medications Medication Instructions Recorded Confirmed Type Carvedilol [Coreg] 6.25 mg PO BID #60 tablet 08/14/16 11/27/16 Rx Digoxin Tab [Lanoxin Tab] 0.125 mg PO DAILY@1300 #30 tablet 08/14/16 11/27/16 Rx Rivaroxaban [Xarelto] 15 mg PO BID W/MEALS #42 08/14/16 11/27/16 Rx Aspirin EC Tab 81 mg PO BID 11/27/16 11/27/16 History Furosemide Tab [Lasix Tab] 40 mg PO QAM 11/27/16 11/27/16 History Spironolactone 12.5 mg PO QAM 11/27/16 11/27/16 History Allergies/Adverse Reactions: Allergies Allergy/AdvReac Type Severity Reaction Status Date / Time lisinopril Allergy Swelling Verified 08/13/16 07:38 of Lip/Tongue/Throat - Constitutional Constitutional: Present: lethargy, weakness, weight gain. Absent: anorexia, chills, night sweats, stops breathing during sleep - EENT Eyes: Absent: blurry vision Ears: Absent: decreased hearing Nose, mouth and throat: Absent: dysphagia - Cardiovascular Cardiovascular: Present: dyspnea, dyspnea on exertion, edema, lightheadedness. Absent: palpitations - Respiratory Respiratory: Present: dyspnea, dyspnea on exertion - Gastrointestinal Gastrointestinal: Present: bloating. Absent: dyspepsia - Genitourinary Genitourinary: Absent: difficulty urinating, hematuria - Musculoskeletal Musculoskeletal: Absent: arthralgias, joint swelling - Neurological Neurological: Present: focal weakness. Absent: abnormal gait, abnormal speech, disequilibrium, numbness - Psychiatric Psychiatric: Absent: anxiety, auditory hallucinations, depression - Endocrine Endocrine: Absent: cold intolerance, heat intolerance - Hematologic/Lymphatic Hematologic/Lymphatic: Absent: easy bleeding, easy bruising Medical,Surgical,& Family Hx - Medical History Cardio: History of: CHF, Hypertension Neurology: History of: Cerebrovascular Accident, TIA Respiratory: History of: Pulmonary Embolism Hematology: History of: Clotting Problems - Surgical History Cardiac Surgeries: Sugical HX of: Cardiac Catheterization (UA 03/2016) - Family History Family History: Reports;: Family Diabetes, Family Heart Disease, Family Hypertension Denies;: Family Stroke - Social History Smoking Status: Current every day smoker Frequency of Alcohol Use: Occasionally Type of Drug Use: None Marital Status: Single Lives With:: Lives with his uncle Functional capacity: independent ambulation Physical Examination Vital Signs Temp Pulse Resp BP Pulse Ox 97.1 F L 102 H 20 134/90 94 L 11/27/16 17:18 11/27/16 17:18 11/27/16 17:18 11/27/16 17:18 11/27/16 17:18 General: Present: Appears Well HEENT: Absent: Pallor Neck: Present: Supple Neck, Midline Trachea Cardiac: Present: S1/S2, S3 Lungs: Present: No Wheezes, No Rales Neuro: Present: Cranial Nerve 2-12 Intact, Other (Mild weakness on the left) Abdomen: Present: Soft, Active Bowel Sounds Skin: Present: Clear. Absent: Rash Musculoskeletal: Absent: Erythematous Joints, Decreased Range of Motion Extremities: Absent: Edema Result/EKG - Labs CBC & BMP: 11/28/16 02:06 11/28/16 02:06 Labs: Laboratory Results - last 24 hr 11/27/16 11/27/16 11/27/16 17:43 17:43 17:43 WBC 9.8 RBC 4.98 Hgb 13.8 L Hct 39.0 L MCV 78.3 L MCH 28 MCHC 35.4 RDW 16.6 Plt Count 307 MPV 10.2 Neut % (Auto) 64.1 Lymph % (Auto) 20.6 L Barron % (Auto) 14.0 H Eos % (Auto) 0.0 Baso % (Auto) 0.5 Neut # (Auto) 6.3 Lymph # (Auto) 2.0 Barron # (Auto) 1.4 H Eos # (Auto) 0.0 Baso # (Auto) 0.1 Total Counted Immature Gran % 0.8 Nucleated RBC % 0.0 Immature Gran # 0.08 Segmented Neutrophils Lymphocytes Monocytes Nucleated RBCs # 0.00 Platelet Estimate Giant Platelets Immature Plt Fraction 0.0 Hypochromasia INR 1.3 PT Patient/Control Mix 13.8 D-Dimer, Quantitative 4.8 Circ Anticoag PTT 28.5 Sodium Potassium Chloride Carbon Dioxide Anion Gap BUN Creatinine GFR Calculation BUN/Creatinine Ratio Glucose Hemoglobin A1c Calculated Osmolality Calcium Total Bilirubin AST ALT Alkaline Phosphatase Total Creatine Kinase CK-MB (CK-2) Troponin I B-Natriuretic Peptide Total Protein Albumin Globulin Albumin/Globulin Ratio Urine Color Yellow Urine Appearance Clear Urine pH 6.0 Ur Specific [place] 1.006 Urine Protein Negative Urine Glucose (UA) Negative Urine Ketones Negative Urine Blood Negative Urine Nitrate Negative Urine Bilirubin Negative Urine Urobilinogen < 2.0 H Urine Leukocytes Negative Urine RBC <1 Urine WBC 1 Ur Squamous Epith Cells Occasional Ur Culture Indicated? Not indicated Pleural WBC Pleural RBC Pleural Tot Cell Ct Pleural Neutrophils Pleural Lymphocytes Pleural Monocytes Pleural Total Protein Pleural Glucose Urine Opiates Screen Ur Barbiturates Screen Ur Phencyclidine Scrn U Amphetamine/Methamph U Benzodiazepines Scrn U Cocaine Metab Screen U Cannabinoids Screen HIV 1&2 Antigen & Ab 11/27/16 11/27/16 11/27/16 17:43 17:43 17:43 WBC RBC Hgb Hct MCV MCH MCHC RDW Plt Count MPV Neut % (Auto) Lymph % (Auto) Barron % (Auto) Eos % (Auto) Baso % (Auto) Neut # (Auto) Lymph # (Auto) Barron # (Auto) Eos # (Auto) Baso # (Auto) Total Counted Immature Gran % Nucleated RBC % Immature Gran # Segmented Neutrophils Lymphocytes Monocytes Nucleated RBCs # Platelet Estimate Giant Platelets Immature Plt Fraction Hypochromasia INR PT Patient/Control Mix D-Dimer, Quantitative Circ Anticoag PTT Sodium 133 L Potassium 3.9 Chloride 98 Carbon Dioxide 26 Anion Gap 12.9 BUN 14 Creatinine 0.90 GFR Calculation 151 BUN/Creatinine Ratio 15.00 Glucose 77 Hemoglobin A1c Calculated Osmolality 265.4 L Calcium 8.3 L Total Bilirubin 1.00 AST 40 H ALT 30 Alkaline Phosphatase 129 H Total Creatine Kinase 34 L CK-MB (CK-2) < 1.0 Troponin I 0.101 H B-Natriuretic Peptide 455 H Total Protein 7.1 Albumin 1.8 L Globulin 5.3 H Albumin/Globulin Ratio 0.3 L Urine Color Urine Appearance Urine pH Ur Specific [place] Urine Protein Urine Glucose (UA) Urine Ketones Urine Blood Urine Nitrate Urine Bilirubin Urine Urobilinogen Urine Leukocytes Urine RBC Urine WBC Ur Squamous Epith Cells Ur Culture Indicated? Pleural WBC Pleural RBC Pleural Tot Cell Ct Pleural Neutrophils Pleural Lymphocytes Pleural Monocytes Pleural Total Protein Pleural Glucose Urine Opiates Screen Negative Ur Barbiturates Screen Negative Ur Phencyclidine Scrn Negative U Amphetamine/Methamph Negative U Benzodiazepines Scrn Negative U Cocaine Metab Screen Negative U Cannabinoids Screen Negative HIV 1&2 Antigen & Ab 11/28/16 11/28/16 11/28/16 02:06 02:06 02:06 WBC 9.8 RBC 5.22 Hgb 14.6 Hct 40.9 L MCV 78.4 L MCH 28 MCHC 35.7 RDW 16.4 Plt Count 303 MPV 10.1 Neut % (Auto) 91.0 H Lymph % (Auto) 7.3 L Barron % (Auto) 1.2 L Eos % (Auto) 0.0 Baso % (Auto) 0.1 Neut # (Auto) 8.9 H Lymph # (Auto) 0.7 L Barron # (Auto) 0.1 L Eos # (Auto) 0.0 Baso # (Auto) 0.0 Total Counted 100 Immature Gran % 0.4 Nucleated RBC % 0.0 Immature Gran # 0.04 Segmented Neutrophils 91 H Lymphocytes 7 L Monocytes 2 Nucleated RBCs # 0.00 Platelet Estimate Adequate Giant Platelets Few Immature Plt Fraction 0.0 Hypochromasia Slight INR PT Patient/Control Mix D-Dimer, Quantitative Circ Anticoag PTT Sodium 133 L Potassium 4.1 Chloride 99 Carbon Dioxide 27 Anion Gap 11.1 BUN 18 Creatinine 0.90 GFR Calculation 147 BUN/Creatinine Ratio 20.00 Glucose 269 H Hemoglobin A1c Calculated Osmolality 276.4 Calcium 8.5 Total Bilirubin AST ALT Alkaline Phosphatase Total Creatine Kinase 31 L CK-MB (CK-2) < 1.0 Troponin I 0.061 H D B-Natriuretic Peptide Total Protein Albumin Globulin Albumin/Globulin Ratio Urine Color Urine Appearance Urine pH Ur Specific [place] Urine Protein Urine Glucose (UA) Urine Ketones Urine Blood Urine Nitrate Urine Bilirubin Urine Urobilinogen Urine Leukocytes Urine RBC Urine WBC Ur Squamous Epith Cells Ur Culture Indicated? Pleural WBC Pleural RBC Pleural Tot Cell Ct Pleural Neutrophils Pleural Lymphocytes Pleural Monocytes Pleural Total Protein Pleural Glucose Urine Opiates Screen Ur Barbiturates Screen Ur Phencyclidine Scrn U Amphetamine/Methamph U Benzodiazepines Scrn U Cocaine Metab Screen U Cannabinoids Screen HIV 1&2 Antigen & Ab 11/28/16 11/28/16 11/28/16 02:06 04:40 04:40 WBC RBC Hgb Hct MCV MCH MCHC RDW Plt Count MPV Neut % (Auto) Lymph % (Auto) Barron % (Auto) Eos % (Auto) Baso % (Auto) Neut # (Auto) Lymph # (Auto) Barron # (Auto) Eos # (Auto) Baso # (Auto) Total Counted Immature Gran % Nucleated RBC % Immature Gran # Segmented Neutrophils Lymphocytes Monocytes Nucleated RBCs # Platelet Estimate Giant Platelets Immature Plt Fraction Hypochromasia INR PT Patient/Control Mix D-Dimer, Quantitative Circ Anticoag PTT Sodium Potassium Chloride Carbon Dioxide Anion Gap BUN Creatinine GFR Calculation BUN/Creatinine Ratio Glucose Hemoglobin A1c 6.6 H Calculated Osmolality Calcium Total Bilirubin AST ALT Alkaline Phosphatase Total Creatine Kinase 27 L CK-MB (CK-2) < 1.0 Troponin I 0.059 H B-Natriuretic Peptide 862 H Total Protein Albumin Globulin Albumin/Globulin Ratio Urine Color Urine Appearance Urine pH Ur Specific [place] Urine Protein Urine Glucose (UA) Urine Ketones Urine Blood Urine Nitrate Urine Bilirubin Urine Urobilinogen Urine Leukocytes Urine RBC Urine WBC Ur Squamous Epith Cells Ur Culture Indicated? Pleural WBC Pleural RBC Pleural Tot Cell Ct Pleural Neutrophils Pleural Lymphocytes Pleural Monocytes Pleural Total Protein Pleural Glucose Urine Opiates Screen Ur Barbiturates Screen Ur Phencyclidine Scrn U Amphetamine/Methamph U Benzodiazepines Scrn U Cocaine Metab Screen U Cannabinoids Screen HIV 1&2 Antigen & Ab 11/28/16 11/28/16 11/28/16 04:40 10:15 10:15 WBC RBC Hgb Hct MCV MCH MCHC RDW Plt Count MPV Neut % (Auto) Lymph % (Auto) Barron % (Auto) Eos % (Auto) Baso % (Auto) Neut # (Auto) Lymph # (Auto) Barron # (Auto) Eos # (Auto) Baso # (Auto) Total Counted Immature Gran % Nucleated RBC % Immature Gran # Segmented Neutrophils Lymphocytes Monocytes Nucleated RBCs # Platelet Estimate Giant Platelets Immature Plt Fraction Hypochromasia INR PT Patient/Control Mix D-Dimer, Quantitative Circ Anticoag PTT Sodium Potassium Chloride Carbon Dioxide Anion Gap BUN Creatinine GFR Calculation BUN/Creatinine Ratio Glucose Hemoglobin A1c Calculated Osmolality Calcium Total Bilirubin AST ALT Alkaline Phosphatase Total Creatine Kinase CK-MB (CK-2) Troponin I B-Natriuretic Peptide Total Protein Albumin Globulin Albumin/Globulin Ratio Urine Color Urine Appearance Urine pH Ur Specific [place] Urine Protein Urine Glucose (UA) Urine Ketones Urine Blood Urine Nitrate Urine Bilirubin Urine Urobilinogen Urine Leukocytes Urine RBC Urine WBC Ur Squamous Epith Cells Ur Culture Indicated? Pleural WBC 492 Pleural RBC [address] Pleural Neutrophils 88 Pleural Lymphocytes 6 Pleural Monocytes 6 Pleural Total Protein Pleural Glucose 12 Urine Opiates Screen Ur Barbiturates Screen Ur Phencyclidine Scrn U Amphetamine/Methamph U Benzodiazepines Scrn U Cocaine Metab Screen U Cannabinoids Screen HIV 1&2 Antigen & Ab Nonreactive 11/28/16 10:15 WBC RBC Hgb Hct MCV MCH MCHC RDW Plt Count MPV Neut % (Auto) Lymph % (Auto) Barron % (Auto) Eos % (Auto) Baso % (Auto) Neut # (Auto) Lymph # (Auto) Barron # (Auto) Eos # (Auto) Baso # (Auto) Total Counted Immature Gran % Nucleated RBC % Immature Gran # Segmented Neutrophils Lymphocytes Monocytes Nucleated RBCs # Platelet Estimate Giant Platelets Immature Plt Fraction Hypochromasia INR PT Patient/Control Mix D-Dimer, Quantitative Circ Anticoag PTT Sodium Potassium Chloride Carbon Dioxide Anion Gap BUN Creatinine GFR Calculation BUN/Creatinine Ratio Glucose Hemoglobin A1c Calculated Osmolality Calcium Total Bilirubin AST ALT Alkaline Phosphatase Total Creatine Kinase CK-MB (CK-2) Troponin I B-Natriuretic Peptide Total Protein Albumin Globulin Albumin/Globulin Ratio Urine Color Urine Appearance Urine pH Ur Specific [place] Urine Protein Urine Glucose (UA) Urine Ketones Urine Blood Urine Nitrate Urine Bilirubin Urine Urobilinogen Urine Leukocytes Urine RBC Urine WBC Ur Squamous Epith Cells Ur Culture Indicated? Pleural WBC Pleural RBC Pleural Tot Cell Ct Pleural Neutrophils Pleural Lymphocytes Pleural Monocytes Pleural Total Protein 4.2 Pleural Glucose Urine Opiates Screen Ur Barbiturates Screen Ur Phencyclidine Scrn U Amphetamine/Methamph U Benzodiazepines Scrn U Cocaine Metab Screen U Cannabinoids Screen HIV 1&2 Antigen & Ab - EKG EKG results: interpreted by me (Normal sinus rhythm there is LVH. There is left atrial abnormality.)
--- NOTE | 2016-11-28 11:44 | Post Interventional Procedure ---
Pre-op diagnosis: right pleural effusion Post-op diagnosis: same Procedure: right thoracentesis with u/s guidance Contrast: none Flouroscopy: none Radiologist: Yifan Sanders Anesthesia: local Specimens: other (30 mL serous pleural fluid sent) Estimated blood loss: none Complications: none Condition: stable Description/Findings: The hypoechoic pocket within the medial right chest could be visualized and targeted with ultrasound guidance. The 6 [place] safety centesis catheter was advanced into this collection with immediate return of serous fluid with some debris. However, the aspirate volume was severely limited, possibly due to multiple septations not clearly visualized by ultrasound. Despite multiple attempts at flushing and catheter repositioning, the overall volume removed was only 20 mL. The catheter was removed and patient tolerated the procedure well. Assessment and Plan - Time spent with patient Time spent with patient: Less than 30 minutes
--- NOTE | 2016-11-28 11:51 | Ultrasound Report ---
Exam: ULTRASOUND-GUIDED THORACENTESIS Clinical history: History of DVT with IVC filter in place and currently not on anticoagulation. Has areas of hypodensity on CT which may represent atelectasis, pulmonary infarction or pleural effusion versus empyema. Physician: Dr. Sanders. Procedure: Informed consent was obtained prior to the procedure. A formal timeout was performed. Maximum sterile barrier technique was used. A partially loculated medial right pleural effusion was identified with ultrasound. The right posterior chest was prepped and draped in sterile fashion. 1% lidocaine was used to anesthetize the skin and subcutaneous tissues. Under sonographic guidance, a 6 Ivorian safety centesis needle and catheter were advanced into the effusion using trocar technique. A captured sonographic image demonstrates positioning of the needle within the targeted pleural fluid. The needle was removed. Through the catheter, we obtained a total of 20 cc of serous straw-colored with debris fluid. Despite manipulation of the catheter and gentle flushing, no additional fluid could be removed. Multiple septations which are below resolution of the ultrasound equipment may be present. The catheter was removed. A bandage was placed at the puncture site. The patient tolerated the procedure well. Chest radiograph is pending. Impression: 1. Technically successful ultrasound guided right thoracentesis as detailed above. 2. Post procedure chest radiograph is pending. PROCEDURE INTERPRETED AT [facility] DEPARTMENT OF RADIOLOGY Final Report Signed by: Yifan Sanders
--- NOTE | 2016-11-28 11:52 | XRay Report ---
Exam: XR chest post procedure Indication: Status post right thoracentesis Comparison study: CT dated 11/25/2016 and chest radiograph 11/25/2016 Findings: Thorax silhouette is enlarged, similar prior. There are multifocal patchy medial right basilar opacities which are essentially unchanged from prior. There is no pneumothorax. Impression: No pneumothorax. Otherwise, no significant change from prior radiograph. Multifocal right perihilar and medial right lung base opacities may represent atelectasis/infiltrate and trace loculated pleural fluid. PROCEDURE INTERPRETED AT [facility] DEPARTMENT OF RADIOLOGY Final Report Signed by: Yifan Sanders
[2016-11-28] MEDS: DIGOXIN 0.125 MG TABLET PO SCH (14:08)
[2016-11-29] MEDS: LEVOFLOXACIN INJ 750 MG in PREMIX 1 EACH IV SCH (01:11)
[2016-11-29] MEDS: ENOXAPARIN 100 MG/ML SYRINGE SUBCUT SCH ×2 (01:12→15:15)
[2016-11-29 04:41] LABS: Basophils % 0.1 % (0.0-0.8); Hematocrit 37.4 VOL% (42.0-52.0); Hemoglobin 13.2 GM/DL (14.0-18.0); Immature Granulocytes % 0.5 %; Immature Granulocytes Absolute 0.08 #; Lymphocytes # 1.5 10*3/uL (1.4-4.0); Lymphocytes % 9.1 % (21.2-54.2); Mean Corpuscular HGB Conc 35.3 GM/DL (32-36); Mean Corpuscular Hemoglobin 28 PG (27-34); Mean Corpuscular Volume 79.1 FL (87-102); Mean Platelet Volume 10.7 FL (9.6-12.0); Monocytes # 1.5 10*3/uL (0.11-0.8); Monocytes % 9.6 % (1.7-12.7); Neutrophils % 80.7 % (38.7-73.9); Platelet Count 358 T/CUMM (130-400); Red Blood Count 4.73 MC/CUMM (3.8-5.5); White Blood Count 16.1 T/CUMM (4-12)
[2016-11-29 05:05] LABS: Calcium 8.2 MG/DL (8.5-10.1); Magnesium 2.3 MG/DL (1.8-2.4); Potassium 4.2 MMOL/L (3.5-5.1)
[2016-11-29] MEDS: PIPERACILLIN/TAZOBACTAM 3,375 MG in SODIUM CHLORIDE 0.9% 100 ML IV SCH ×3 (05:22→21:54)
[2016-11-29] MEDS ORDERED: TUBERCULIN SKIN TEST 0.1 ML SYRINGE INTRADERM ONE (06:59)
--- NOTE | 2016-11-29 08:14 | Pulmonology Progress Note ---
Pulmonary - PN: Subj Interval history: This 41-year-old white male has a history of recurrent pulmonary emboli and has had strokes. He was noted on echo yesterday to have a severe cardiomyopathy with ejection fraction 15% and a mural thrombus inside the left ventricle. He has been noncompliant with taking anticoagulants in the past because he could not afford them and has been trying to obtain Medicaid. He should certainly be a candidate for Medicaid based on his severe medical problems. At any rate this is being looked into. At the present time he has cavitary infiltrate in the right lower lobe. Also has a loculated right pleural effusion. Interventional radiology was only able to obtain 20 cc of fluid yesterday. The glucose was quite low at 12 in the fluid. There were not a lot of white cells but it was mostly neutrophils. This is likely parapneumonic. Hopefully it is not an empyema. It would be difficult to drain the pleural fluid since it is loculated and it might require surgical drainage if it were an empyema. Tomorrow I will do a bronchoscope and obtain washings from the cavitary infiltrate to be sure we are not dealing with granulomatous disease. I do not plan any brushings or biopsies. We will not hold his Lovenox for the procedure. Exam (Progress Note) - Constitutional Vitals: Period Temp Pulse Resp BP Sys/Crystal Pulse Ox Last 24 Hr 96.4 F-97.0 F 73-89 16-20 115-137/74-90 95-100 Exam: Patient's alert seems oriented vital signs normal pupils react to light. Throat is clear. Neck is supple. Chest reveals decreased breath sounds at the right base. Heart normal rate and rhythm PMI displaced to the left. No murmurs. Abdomen soft nontender no masses. Extremities she has some chronic edema in both legs. Calves are nontender. Results - Labs CBC & BMP: 11/29/16 04:06 11/29/16 04:06 Lab Results: I have reviewed the past 24 hour labs Assessment and Plan (1) Bilateral pulmonary embolism Status: Acute Assessment and plan: Was noted on CT 3 months ago to have bilateral emboli. IVC filter placed at that time. Xarelto prescribed. Patient relates that he is not able to bite because it is expensive. He was set up to follow-up with [facility]. He needs help getting his medications. Needs to be on Medicaid at least. Coumadin would be difficult in him due to his alcohol history and noncompliance history. The right lower lobe abnormalities may be sequelae of previous pulmonary embolism with pulmonary infarction. 11/29/2016 patient has had chronic pulmonary emboli unresolved. Also has an LV thrombus. Needs lifelong anticoagulants. Had Xarelto prescribed earlier but was not able to afford to purchase it. Presently on full dose subcu Lovenox. Current Visit: No (2) Medical non-compliance Status: Chronic Assessment and plan: Not taking anticoagulants despite being told that he may without taking them based on Dr. Pisano's progress note from last admission. 11/29/2016 financial problems involving his medicines. Current Visit: No (3) DVT (deep venous thrombosis) Status: Acute Assessment and plan: Has IVC umbrella. Taking only aspirin. Current Visit: No (4) Nicotine addiction Status: Chronic Assessment and plan: Increased risk for DVT. Current Visit: No Qualifiers: Nicotine product type: cigarettes (5) Pneumonia Status: Acute Assessment and plan: He has had chills and coughing up phlegm. Cavitary infiltrate in the lower part of the right lung may well be pneumonia. Agree with empiric antibiotics. Check sputum culture. Needs pleural fluid going to be sure he does not have an empyema. May require bronchoscopy if he does not respond. 11/29/2016 it appears that he has a cavitary pneumonia in the right lower lobe. We are treating this as pneumonia. I will bronchoscope him tomorrow and obtain washings to be sure we are not dealing with chronic granulomatous infection. Could also be an area of pulmonary infarction. However he has not been coughing up blood. Current Visit: Yes (6) CHF (congestive heart failure) Status: Chronic Assessment and plan: Has elevated BNP. Echo pending. 11/29/2016 has an ejection fraction 15% in his left ventricle. Severe nonischemic cardiomyopathy. Also has left ventricular thrombus. Current Visit: Yes
[2016-11-29] MEDS: FUROSEMIDE 40 MG TABLET PO SCH (09:03)
[2016-11-29] MEDS: CARVEDILOL 6.25 MG TABLET PO SCH ×2 (09:04→21:54)
[2016-11-29] MEDS: ASPIRIN EC 81 MG TABLET PO SCH ×2 (09:04→21:54)
[2016-11-29] MEDS: SPIRONOLACTONE 25 MG TABLET PO SCH (09:04)
[2016-11-29] MEDS: PANTOPRAZOLE 40 MG TABLET PO SCH (09:04)
[2016-11-29] MEDS: LOSARTAN 25 MG TABLET PO SCH (09:04)
--- NOTE | 2016-11-29 09:27 | Cardiology Progress Note ---
Assessment and Plan - Time spent with patient Time spent with patient: Greater than 30 minutes Time spent discussing smoking cessation with patient: 3 to 10 minutes (1) Alcohol abuse Status: Chronic Assessment and plan: I will start low-dose Ativan for delirium tremens prevention. Last drink November 27, 2016. Drinks "as many fifths of whiskey as I can get my hands on, starting around 0900 until I pass out" for the past 20+ years. Interested in AAA. Current Visit: No (2) Medical non-compliance Status: Chronic Assessment and plan: Reiterated the importance of medical compliance and follow-up. He verbalizes understanding. Reports he is now ready to begin improving his health. Current Visit: No (3) DVT (deep venous thrombosis) Status: Chronic Assessment and plan: Diagnosed with DVT right lower extremity August 13, 2016, right superficial femoral vein and popliteal vein. Continue with therapeutic doses of Lovenox. He does have an IVC filter in place. Current Visit: No Qualifiers: Affected thrombotic vein of extremity: femoral Chronicity: chronic Laterality: right (4) Nicotine addiction Status: Chronic Assessment and plan: Greater than 5 minutes was spent today discussing the merits of tobacco cessation Current Visit: No Qualifiers: Nicotine product type: cigarettes (5) Pneumonia Status: Chronic Assessment and plan: It is believed a cavitary infiltrate in the lower part of the right lung may be pneumonia. Scheduled for bronchoscopy tomorrow. Continue empiric antibiotics, sputum culture pending. If patient has an empyema may require surgery. Continue pulmonary toilet. Current Visit: Yes (6) CHF (congestive heart failure) Status: Acute Assessment and plan: Suspect this is acute on chronic secondary to systolic dysfunction (EF 15%) and diastolic dysfunction. NYHA Class II. Continue diuresing, daily weight and strict I&O. Current Visit: Yes Qualifiers: Congestive heart failure type: combined Congestive heart failure chronicity : acute on chronic Qualified Code(s): I50.43 - Acute on chronic combined systolic (congestive) and diastolic (congestive) heart failure (7) HTN (hypertension) Status: Chronic Assessment and plan: Continue beta-abbie, ARB. Adequately controlled during this hospitalization Current Visit: Yes Qualifiers: Hypertension type: essential hypertension Qualified Code(s): I10 - Essential (primary) hypertension (8) Left ventricular thrombus Status: Chronic Assessment and plan: Therapeutic doses of Lovenox continue. Patient will need lifelong anticoagulation. Current Visit: Yes (9) Hypercoagulable state Status: Chronic Assessment and plan: Patient will need lifelong anticoagulation. Currently taking Lovenox. Current Visit: Yes (10) Presence of IVC filter Status: Chronic Assessment and plan: Placed August 2016. Continue current plan of care Current Visit: Yes (11) NICM (nonischemic cardiomyopathy) Status: Chronic Assessment and plan: Continue low-dose Coreg, Losartan, Spironolactone. Patient had heart catheterization at [facility] in March 2016 and nonischemic cardiomyopathy diagnosed. 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 Current Visit: Yes (12) Pulmonary embolism Status: Chronic Assessment and plan: No acute PE identified per CT this admission however chronic thrombus of the right lower lobe pulmonary artery is present similar to findings on the previous CT August 2016. IVC filter was placed approximately 3 months ago when he was found to have bilateral emboli. Patient was given Xarelto however he cannot afford Xarelto therefore he has not been taking. Poor candidate for Coumadin administration due to his history of noncompliance, alcohol abuse. He is currently taking therapeutic doses of Lovenox. Case management has been consulted for assistance with this situation. Patient should qualify for disability given the severity of his multiple chronic conditions. Current Visit: Yes Qualifiers: Chronicity: chronic Cardiology - PN: Subj Interval history: TRADE SHOW COORDINATOR: (NEW) DR. CAIN Mr. Daniels is a 41 year old male with extensive past medical history, admitted for shortness of breath with cavitary lesions in his lungs. Routine transthoracic echo was performed yersterday and noted to have a severely depressed (EF 15%), Grade III diastolic dysfunction, apical akinesis and large apical thrombus in the left ventricle. Apparently, patient has a history of hypercoagulable state with recurrent DVT, TIAs and stroke. He has IVC filter placed several months ago. Patient reports he had heart catheterization March 2016 at [facility] and was told his coronaries were clean, weak heart. He reports he was also told he had to blood clots inside the heart at that time. Patient reports he recognizes that he is an alcoholic. He states he drinks several pints of whiskey each day for the past 20 years. His last drink was the day he was admitted. Patient reports he was unable to afford Xarelto due to cost, unable to take warfarin due to inability to reliably get back and forth to the doctor for management of INR. NOVEMBER 29, 2016: Patient underwent thoracentesis yesterday as patient had a cavitary infiltrate in the right lower lobe, loculated right pleural effusion. He is scheduled for bronchoscopy tomorrow morning to obtain washings from the cavitary infiltrate. Lovenox will not be held as there is no plan for brushings or biopsies. Because the patient has such a severe history of alcoholism, I am going to add a very low-dose of Ativan today. He reports he is beginning to feel somewhat nervous today. Labs are stable, no arrhythmia noted, vital signs are stable. I will further discuss with Dr. Cain and await additional recommendations. ASSESSMENT/PLAN: 1. ACUTE ON CHRONIC CHF - secondary to systolic dysfunction (EF 15%) and diastolic dysfunction. NYHA Class II. 2. PNEUMONIA -it is believed a cavitary infiltrate in the lower part of the right lung may be pneumonia. Scheduled for bronchoscopy tomorrow. Continue empiric antibiotics, sputum culture pending. If patient has an empyema may require surgery. Continue pulmonary toilet. 3. LV THROMBUS - therapeutic doses of Lovenox continue 4. NICM - continue low-dose Coreg, Losartan, Spironolactone. 5. ALCOHOLISM - will start low-dose Ativan for delirium tremens prevention. 6. NON-COMPLIANCE - reiterated the importance of medical compliance and follow- up. He verbalizes understanding. 7. NICOTENE ADDICTION - greater than 5 minutes was spent today discussing the merits of tobacco cessation 8. BILATERAL PULMONARY EMBOLISM -IVC filter was placed approximately 3 months ago when he was found to have bilateral emboli. Patient was given Xarelto however he cannot afford Xarelto therefore he has not been taking. Poor candidate for Coumadin administration due to his history of noncompliance, alcohol abuse. He is currently on therapeutic doses of Lovenox. Case management has been consulted for assistance with this situation. Patient should qualify for disability given the severity of his multiple chronic conditions. 9. S/P IVC FILTER - continue current plan of care Exam (Progress Note) - Constitutional Vitals: Period Temp Pulse Resp BP Sys/Crystal Pulse Ox Last 24 Hr 96.4 F-97.0 F 73-89 16-20 115-137/74-90 95-100 Exam: General: [Appears well with no apparent distress.] [Pleasant and cooperative. ] [Appears comfortable.] HEENT: [PERRL, normocephalic, atraumatic. Mucous membranes moist. No jaundice noted. Conjunctiva moist and clear, sclerae anicteric] Neck: No JVD/HJR, no thyromegaly or lymphadenopathy noted. No carotid bruit appreciated Cardiac: [Regular rate and rhythm.] [No murmur rub or gallop.] Lungs: [Clear to auscultation without accessory muscle use to assist the respiratory pattern.] Not requiring oxygen Abdomen: Soft, bowel sounds normoactive. Nontender and nondistended. No abdominal bruit or thrill noted. No masses noted. Musculoskeletal: No fluid collection. Decreased range of motion is noted. Extremities: No clubbing, cyanosis noted. [ No edema noted.] Upper extremity pulses 2+. Lower extremity pulses 2+. Capillary refill less than 3 seconds. Skin: No unusual lesions or rashes. No skin breakdown appreciated. Neuro: Awake, alert and oriented 3. Moves all extremities well without hemiparesis or paralysis. No essential tremor is appreciated. Result/EKG - Labs CBC & BMP: 11/29/16 04:06 11/29/16 04:06 Lab Results: I have reviewed the past 24 hour labs Labs: Laboratory Results - last 24 hr 11/28/16 11/28/16 11/28/16 10:15 10:15 10:15 WBC RBC Hgb Hct MCV MCH MCHC RDW Plt Count MPV Neut % (Auto) Lymph % (Auto) Zavala % (Auto) Eos % (Auto) Baso % (Auto) Neut # (Auto) Lymph # (Auto) Zavala # (Auto) Eos # (Auto) Baso # (Auto) Immature Gran % Nucleated RBC % Immature Gran # Nucleated RBCs # Immature Plt Fraction Sodium Potassium Chloride Carbon Dioxide Anion Gap BUN Creatinine GFR Calculation BUN/Creatinine Ratio Glucose Calculated Osmolality Calcium Magnesium Pleural WBC 492 Pleural RBC [address] 100 Pleural Neutrophils 88 Pleural Lymphocytes 6 Pleural Monocytes 6 Pleural Total Protein 4.2 Pleural LDH Pleural Glucose 12 11/28/16 11/29/16 11/29/16 10:15 04:06 04:06 WBC 16.1 H D RBC 4.73 Hgb 13.2 L Hct 37.4 L MCV 79.1 L MCH 28 MCHC 35.3 RDW 17.0 Plt Count 358 MPV 10.7 Neut % (Auto) 80.7 H Lymph % (Auto) 9.1 L Zavala % (Auto) 9.6 Eos % (Auto) 0.0 Baso % (Auto) 0.1 Neut # (Auto) 13.0 H Lymph # (Auto) 1.5 Zavala # (Auto) 1.5 H Eos # (Auto) 0.0 Baso # (Auto) 0.0 Immature Gran % 0.5 Nucleated RBC % 0.0 Immature Gran # 0.08 Nucleated RBCs # 0.00 Immature Plt Fraction 0.0 Sodium 143 Potassium 4.2 Chloride 109 H Carbon Dioxide 27 Anion Gap 11.2 BUN 24 H Creatinine 0.80 GFR Calculation 154 BUN/Creatinine Ratio 30.00 H Glucose 107 H Calculated Osmolality 288.0 Calcium 8.2 L Magnesium 2.3 Pleural WBC Pleural RBC Pleural Tot Cell Ct Pleural Neutrophils Pleural Lymphocytes Pleural Monocytes Pleural Total Protein Pleural LDH 7292 Pleural Glucose - Diagnostic Findings Procedure: Chest x-ray: report reviewed by me - EKG EKG results: interpreted by nv EKG shows: sinus rhythm
[2016-11-29] MEDS: LORazepam 0.5 MG TABLET PO SCH ×2 (11:56→21:54)
--- NOTE | 2016-11-29 13:39 | Hospitalist Progress Note ---
Assessment and Plan (1) Mural thrombus of heart Status: Acute Assessment and plan: The patient continues on Lovenox for pulmonary emboli and mural thrombus. The patient is scheduled for bronchoscopy to evaluate cavitary lesion tomorrow. Current Visit: Yes (2) Bilateral pulmonary embolism Status: Acute Current Visit: No (3) DVT (deep venous thrombosis) Status: Chronic Current Visit: No Qualifiers: Affected thrombotic vein of extremity: femoral Chronicity: chronic Laterality: right (4) Presence of IVC filter Status: Chronic Current Visit: Yes Hospitalist: Subjective Interval history: Mr. Daniels feels better today. He says he has some energy and less shortness of breath than yesterday. The patient has no complaint of angina or palpitations. Exam - Constitutional Vitals: Period Temp Pulse Resp BP Sys/Crystal Pulse Ox Last 24 Hr 96.4 F-96.8 F 76-84 16-20 120-137/74-85 96-100 General appearance: mild distress - Respiratory Respiratory exam: Present: clear to auscultation bilaterally - Cardiovascular Cardiovascular exam: Present: regular rate and rhythm - GI/Abdominal GI/Abdominal exam: Present: normal bowel sounds Results - Labs CBC & BMP: 11/29/16 04:06 11/29/16 04:06 Lab Results: I have reviewed the past 24 hour labs
--- NOTE | 2016-11-29 14:16 | Pathology Report from [facility] ---
[facility] ACCESSION # : [id number] PATIENT NAME : Abilio Daniels ORDERING DR : Yifan Sanders MD CLINICAL HX: Recurrent Right Pleural Effusion, History of pulmonary emboli POST-OP DX: Same SPECIMEN INFO: Fluid,Pleural,Right - 20 mls red orange, cloudy (Received in Syringe) CLASS: I CLASS COMMENTS: Inflammation, proteinaceous material, scant cellularity.CELL BLOCK: Same CLASS LEGEND: CLASS 0 Material inadequate for diagnosis because of (see comment) CLASS I Absence of atypical or abnormal cells CLASS II Atypical Cytology but no evidence of malignancy CLASS III Cytology suggestive of but not conclusive for malignancy CLASS IV Cytology strongly suggestive of malignancy CLASS V Cytology conclusive for malignancy COLLECTED DATE: 11/28/2016 [facility] REPORT DATE: 11/29/2016 ELECTRONICALLY SIGNED BY: Cabrera Carrizales M.D. 11/29/2016 - 9:22:44 [email or web address]
[2016-11-29] MEDS: DIGOXIN 0.125 MG TABLET PO SCH (15:14)
[2016-11-30] MEDS: LEVOFLOXACIN INJ 750 MG in PREMIX 1 EACH IV SCH (01:52)
[2016-11-30] MEDS: ENOXAPARIN 100 MG/ML SYRINGE SUBCUT SCH ×2 (01:57→13:30)
[2016-11-30 05:08] LABS: Basophils % 0.4 % (0.0-0.8); Hematocrit 38.8 VOL% (42.0-52.0); Hemoglobin 13.4 GM/DL (14.0-18.0); Immature Granulocytes % 0.5 %; Immature Granulocytes Absolute 0.04 #; Lymphocytes # 2.5 10*3/uL (1.4-4.0); Lymphocytes % 30.8 % (21.2-54.2); Mean Corpuscular HGB Conc 34.5 GM/DL (32-36); Mean Corpuscular Hemoglobin 28 PG (27-34); Mean Corpuscular Volume 80.2 FL (87-102); Monocytes # 1.2 10*3/uL (0.11-0.8); Monocytes % 15.3 % (1.7-12.7); Neutrophils # 4.3 10*3/uL (1.4-7.4); Platelet Count 377 T/CUMM (130-400); Red Blood Count 4.84 MC/CUMM (3.8-5.5); Red Cell Distribution Width 17.5 % (9.3-17.3); White Blood Count 8.1 T/CUMM (4-12)
[2016-11-30] MEDS: PIPERACILLIN/TAZOBACTAM 3,375 MG in SODIUM CHLORIDE 0.9% 100 ML IV SCH ×3 (05:14→20:49)
[2016-11-30 05:39] LABS: Calcium 8.6 MG/DL (8.5-10.1); Magnesium 2.1 MG/DL (1.8-2.4); Osmolality,Calculated 287.8 MOS/KG (273-304); Potassium 4.5 MMOL/L (3.5-5.1)
[2016-11-30] MEDS ORDERED: PROMETHAZINE 25 MG/1 ML VIAL IM ONE (06:30)
[2016-11-30] MEDS ORDERED: MIDAZOLAM 2 MG/2 ML VIAL ONE (07:10)
[2016-11-30] MEDS ORDERED: LIDOCAINE 2% TOP JELLY 5 ML TUBE TOP ONE (07:25)
[2016-11-30] MEDS ORDERED: MIDAZOLAM 2 MG/2 ML VIAL IV ONE ×3 (07:30→08:30)
[2016-11-30] MEDS ORDERED: LIDOCAINE 2% 20 ML VIAL RESP TX ONE (07:30)
[2016-11-30] MEDS ORDERED: LIDOCAINE 1% 20 ML VIAL MISC INJ ONE ×2 (07:30→08:30)
--- NOTE | 2016-11-30 07:46 | Pulmonology Progress Note ---
Pulmonary - PN: Subj Interval history: This 41-year-old white male has a history of recurrent pulmonary emboli and has had strokes. He was noted on echo yesterday to have a severe cardiomyopathy with ejection fraction 15% and a mural thrombus inside the left ventricle. He has been noncompliant with taking anticoagulants in the past because he could not afford them and has been trying to obtain Medicaid. He should certainly be a candidate for Medicaid based on his severe medical problems. At any rate this is being looked into. At the present time he has cavitary infiltrate in the right lower lobe. Also has a loculated right pleural effusion. Interventional radiology was only able to obtain 20 cc of fluid yesterday. The glucose was quite low at 12 in the fluid. There were not a lot of white cells but it was mostly neutrophils. This is likely parapneumonic. Hopefully it is not an empyema. It would be difficult to drain the pleural fluid since it is loculated and it might require surgical drainage if it were an empyema. Tomorrow I will do a bronchoscope and obtain washings from the cavitary infiltrate to be sure we are not dealing with granulomatous disease. I do not plan any brushings or biopsies. We will not hold his Lovenox for the procedure. 11/30/2016 patient feeling a little better. No fever. He has what appears to be a parapneumonic effusion with negative cultures. Continuing empiric antibiotics. Plan bronchoscopy today to good bronchial washings from the right lower lobe and right middle lobe which is the area of the cavitation is on CT. Will not hold anticoagulants as we do not plan to do any brushings or biopsies. Exam (Progress Note) - Constitutional Vitals: Period Temp Pulse Resp BP Sys/Crystal Pulse Ox Last 24 Hr 96.4 F-97.6 F 76-95 14-20 113-147/78-111 97-100 Exam: Patient's alert seems oriented vital signs normal pupils react to light. Throat is clear. Neck is supple. Chest reveals decreased breath sounds at the right base. Heart normal rate and rhythm PMI displaced to the left. No murmurs. Abdomen soft nontender no masses. Extremities she has some chronic edema in both legs. Calves are nontender. Little change from yesterday. Results - Labs CBC & BMP: 11/30/16 04:17 11/30/16 04:17 Lab Results: I have reviewed the past 24 hour labs Assessment and Plan (1) Bilateral pulmonary embolism Status: Acute Assessment and plan: Was noted on CT 3 months ago to have bilateral emboli. IVC filter placed at that time. Xarelto prescribed. Patient relates that he is not able to bite because it is expensive. He was set up to follow-up with [facility]. He needs help getting his medications. Needs to be on Medicaid at least. Coumadin would be difficult in him due to his alcohol history and noncompliance history. The right lower lobe abnormalities may be sequelae of previous pulmonary embolism with pulmonary infarction. 11/29/2016 patient has had chronic pulmonary emboli unresolved. Also has an LV thrombus. Needs lifelong anticoagulants. Had Xarelto prescribed earlier but was not able to afford to purchase it. Presently on full dose subcu Lovenox. 11/30/2016 patient needs lifelong anticoagulation. Trying to make arrangements through social work. Current Visit: No (2) Medical non-compliance Status: Chronic Assessment and plan: Not taking anticoagulants despite being told that he may without taking them based on Dr. Pisano's progress note from last admission. 11/29/2016 financial problems involving his medicines. Current Visit: No (3) DVT (deep venous thrombosis) Status: Chronic Assessment and plan: Has IVC umbrella. Taking only aspirin. 11/30/2016 again needs lifelong anticoagulants despite the umbrella. Current Visit: No Qualifiers: Affected thrombotic vein of extremity: femoral Chronicity: chronic Laterality: right (4) Nicotine addiction Status: Chronic Assessment and plan: Increased risk for DVT. Current Visit: No Qualifiers: Nicotine product type: cigarettes (5) Pneumonia Status: Chronic Assessment and plan: He has had chills and coughing up phlegm. Cavitary infiltrate in the lower part of the right lung may well be pneumonia. Agree with empiric antibiotics. Check sputum culture. Needs pleural fluid going to be sure he does not have an empyema. May require bronchoscopy if he does not respond. 11/29/2016 it appears that he has a cavitary pneumonia in the right lower lobe. We are treating this as pneumonia. I will bronchoscope him tomorrow and obtain washings to be sure we are not dealing with chronic granulomatous infection. Could also be an area of pulmonary infarction. However he has not been coughing up blood. 11/30/2016 continuing empiric antibiotics for pneumonia. Bronchial washings hopefully will give us an organism. Also will be used to rule out TB or fungus. Current Visit: Yes (6) CHF (congestive heart failure) Status: Acute Assessment and plan: Has elevated BNP. Echo pending. 11/29/2016 has an ejection fraction 15% in his left ventricle. Severe nonischemic cardiomyopathy. Also has left ventricular thrombus. 11/30/16 patient has severe cardiomyopathy. Current Visit: Yes Qualifiers: Congestive heart failure type: combined Congestive heart failure chronicity : acute on chronic Qualified Code(s): I50.43 - Acute on chronic combined systolic (congestive) and diastolic (congestive) heart failure
--- NOTE | 2016-11-30 07:50 | Operative Note ---
Date of procedure: 11/30/16 (Fiberoptic bronchoscopy with washings right lower lobe right middle lobe) Pre-op diagnosis: Cavitary infiltrate right lower lobe, bacterial versus granulomatous infect Post-op diagnosis: same Procedure: Patient was given premedication on the contreras. He was transported to the bronchoscopy suite. After an appropriate timeout to be sure we were dealing with Abilio Daniels, the patient was topically anesthetized in the nose and nasopharynx with Xylocaine. 3 L of nasal oxygen was placed in the right naris. He was given 4 mg of Versed intravenously to the point of sedation. The fiberoptic bronchoscope was introduced via the left naris. We used the smaller scope to prevent scope trauma with his being on anticoagulants. The vocal cords were identified and noted to function normally with phonation. After further topical anesthesia the trachea was entered and was free of lesions. The mamta was sharp. There were some increased secretions in the right lower lobe and right middle lobe. These were irrigated with saline with bronchial washings obtained. The right upper lobe was clear. The left side was clear as well. There was increased submucosal vascularity in both the left and the right mainstem bronchi, consistent with his chronic heart disease. After obtaining bronchial washings the bronchoscope was removed and the patient returned to his room in stable condition. There was no bleeding. Anesthesia: conscious sedation Surgeon / Physician: Andre Deshpande Estimated blood loss: none Specimens: other (Bronchial washings right middle lobe and right lower lobe) Condition: stable Disposition: floor Results - Labs CBC & BMP: 11/30/16 04:17 11/30/16 04:17 Discharge Plan - Discharge Medications No Action Carvedilol [Coreg] 6.25 mg PO BID #60 tablet Digoxin Tab [Lanoxin Tab] 0.125 mg PO DAILY@1300 #30 tablet Rivaroxaban [Xarelto] 15 mg PO BID W/MEALS #42 Aspirin EC Tab 81 mg PO BID Spironolactone 12.5 mg PO QAM Furosemide Tab [Lasix Tab] 40 mg PO QAM - Follow Up or Referral - Forms/Instructions
[2016-11-30] MEDS: LORazepam 0.5 MG TABLET PO SCH ×2 (10:03→20:48)
[2016-11-30] MEDS: LOSARTAN 25 MG TABLET PO SCH (10:03)
[2016-11-30] MEDS: SPIRONOLACTONE 25 MG TABLET PO SCH (10:03)
[2016-11-30] MEDS: CARVEDILOL 6.25 MG TABLET PO SCH (10:03)
[2016-11-30] MEDS: FUROSEMIDE 40 MG TABLET PO SCH (10:03)
[2016-11-30] MEDS: PANTOPRAZOLE 40 MG TABLET PO SCH (10:04)
[2016-11-30] MEDS: ASPIRIN EC 81 MG TABLET PO SCH ×2 (10:04→20:49)
--- NOTE | 2016-11-30 12:21 | Cardiology Progress Note ---
<Mer Lomas E - Last Filed: 11/30/16 12:45> Assessment and Plan - Time spent with patient Time spent with patient: Greater than 30 minutes Time spent discussing smoking cessation with patient: 3 to 10 minutes (1) Alcohol abuse Status: Chronic Assessment and plan: Yesterday, Ativan was initiated for prevention of delirium tremens. At this point, continue Ativan. Current Visit: No (2) Medical non-compliance Status: Chronic Assessment and plan: Again, reiterated the importance of medical compliance and follow-up. Current Visit: No (3) DVT (deep venous thrombosis) Status: Chronic Assessment and plan: Diagnosed with DVT right lower extremity August 13, 2016, right superficial femoral vein and popliteal vein. Continue with therapeutic doses of Lovenox. He does have an IVC filter in place. Poor candidate for Coumadin due to history of noncompliance and alcoholism Current Visit: No Qualifiers: Affected thrombotic vein of extremity: femoral Chronicity: chronic Laterality: right (4) Nicotine addiction Status: Chronic Assessment and plan: Greater than 5 minutes was spent today discussing the merits of tobacco cessation Current Visit: No Qualifiers: Nicotine product type: cigarettes (5) Pneumonia Status: Chronic Assessment and plan: It is believed a cavitary infiltrate in the lower part of the right lung may be pneumonia. Underwent bronchoscopy this morning. Await results. Current Visit: Yes (6) CHF (congestive heart failure) Status: Acute Assessment and plan: Suspect this is acute on chronic secondary to systolic dysfunction (EF 15%) and diastolic dysfunction. NYHA Class II. Continue diuresing, daily weight and strict I&O. Current Visit: Yes Qualifiers: Congestive heart failure type: combined Congestive heart failure chronicity : acute on chronic Qualified Code(s): I50.43 - Acute on chronic combined systolic (congestive) and diastolic (congestive) heart failure (7) HTN (hypertension) Status: Chronic Assessment and plan: Increasing beta-abbie today for continued diastolic hypertension. Continue ARB. Current Visit: Yes Qualifiers: Hypertension type: essential hypertension Qualified Code(s): I10 - Essential (primary) hypertension (8) Left ventricular thrombus Status: Chronic Assessment and plan: Therapeutic doses of Lovenox continue. Patient will need lifelong anticoagulation. Current Visit: Yes (9) Hypercoagulable state Status: Chronic Assessment and plan: Patient will need lifelong anticoagulation. Currently taking Lovenox. Current Visit: Yes (10) Presence of IVC filter Status: Chronic Assessment and plan: Placed August 2016. Continue current plan of care Current Visit: Yes (11) NICM (nonischemic cardiomyopathy) Status: Chronic Assessment and plan: Continue Coreg, Losartan, Spironolactone. Patient had heart catheterization at [facility] in March 2016 and nonischemic cardiomyopathy diagnosed. 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 Reinforced the need for continued cessation from alcohol use Current Visit: Yes (12) Pulmonary embolism Status: Chronic Assessment and plan: No acute PE identified per CT this admission however chronic thrombus of the right lower lobe pulmonary artery is present similar to findings on the previous CT August 2016. IVC filter was placed approximately 3 months ago when he was found to have bilateral emboli. Patient was given Xarelto however he cannot afford Xarelto therefore he has not been taking. Poor candidate for Coumadin administration due to his history of noncompliance, alcohol abuse. He is currently taking therapeutic doses of Lovenox. Case management has been consulted for assistance with this situation. Patient should qualify for disability given the severity of his multiple chronic conditions. Current Visit: Yes Qualifiers: Chronicity: chronic Cardiology - PN: Subj Interval history: CHEMIST HELPER: (NEW) DR. RIOS Mr. Daniels is a 41 year old male with extensive past medical history, admitted for shortness of breath with cavitary lesions in his lungs. Routine transthoracic echo was performed yersterday and noted to have a severely depressed (EF 15%), Grade III diastolic dysfunction, apical akinesis and large apical thrombus in the left ventricle. Apparently, patient has a history of hypercoagulable state with recurrent DVT, TIAs and stroke. He has IVC filter placed several months ago. Patient reports he had heart catheterization March 2016 at [facility] and was told his coronaries were clean, weak heart. He reports he was also told he had to blood clots inside the heart at that time. Patient reports he recognizes that he is an alcoholic. He states he drinks several pints of whiskey each day for the past 20 years. His last drink was the day he was admitted. Patient reports he was unable to afford Xarelto due to cost, unable to take warfarin due to inability to reliably get back and forth to the doctor for management of INR. NOVEMBER 29, 2016: Patient underwent thoracentesis yesterday as patient had a cavitary infiltrate in the right lower lobe, loculated right pleural effusion. He is scheduled for bronchoscopy tomorrow morning to obtain washings from the cavitary infiltrate. Lovenox will not be held as there is no plan for brushings or biopsies. Because the patient has such a severe history of alcoholism, I am going to add a very low-dose of Ativan today. He reports he is beginning to feel somewhat nervous today. Labs are stable, no arrhythmia noted, vital signs are stable. I will further discuss with Dr. iRos and await additional recommendations. NOVEMBER 30, 2016: Patient underwent fiberoptic bronchoscopy with washings of the right lower lobe, right middle lobe this morning. He tolerated without problems. Reports his breathing is better this morning. Diastolic blood pressure consistently high 90s and low 100s. Will increase his Coreg for better control, continue Losartan. Minimal change in his weight overnight. Therapeutic doses of Lovenox continued. He will need lifelong anticoagulation. He has been a poor candidate for Coumadin in the past due to noncompliance and alcohol abuse. Case management is working to see if they can assist with programs which supply or reduce the cost of novel anticoagulants such as Xarelto. Continue with diuresing. Will further discuss with Dr. Rios and await additional recommendations ASSESSMENT/PLAN: 1. ACUTE ON CHRONIC CHF - secondary to systolic dysfunction (EF 15%) and diastolic dysfunction. NYHA Class II. Continue diuresing, strict I&O, daily weights. 2. PNEUMONIA - it is believed a cavitary infiltrate in the lower part of the right lung may be pneumonia. Scheduled for bronchoscopy tomorrow. Continue empiric antibiotics, await bronchial washings results. 3. LV THROMBUS - therapeutic doses of Lovenox continue 4. NICM - continue low-dose Coreg, Losartan, Spironolactone. 5. ALCOHOLISM - continue low-dose Ativan for delirium tremens prevention. 6. NON-COMPLIANCE - reiterated the importance of medical compliance and follow- up. He verbalizes understanding. 7. NICOTENE ADDICTION - greater than 5 minutes was spent today discussing the merits of tobacco cessation 8. BILATERAL PULMONARY EMBOLISM - IVC filter was placed approximately 3 months ago when he was found to have bilateral emboli. Patient was given Xarelto however he cannot afford Xarelto therefore he has not been taking. Poor candidate for Coumadin administration due to his history of noncompliance, alcohol abuse. He is currently on therapeutic doses of Lovenox. Case management has been consulted for assistance with this situation. Patient should qualify for disability given the severity of his multiple chronic conditions. 9. S/P IVC FILTER - continue current plan of care Exam (Progress Note) - Constitutional Vitals: Period Temp Pulse Resp BP Sys/Crystal Pulse Ox Last 24 Hr 96.7 F-98.0 F 76-95 12-24 113-147/78-111 92-100 Exam: General: [Appears well with no apparent distress.] [Pleasant and cooperative. ] [Appears comfortable.] HEENT: [PERRL, normocephalic, atraumatic. Mucous membranes moist. No jaundice noted. Conjunctiva moist and clear, sclerae anicteric] Neck: No JVD/HJR, no thyromegaly or lymphadenopathy noted. No carotid bruit appreciated Cardiac: [Regular rate and rhythm.] [No murmur rub or gallop.] Lungs: [Clear to auscultation without accessory muscle use to assist the respiratory pattern.] Not requiring oxygen Abdomen: Soft, bowel sounds normoactive. Nontender and nondistended. No abdominal bruit or thrill noted. No masses noted. Musculoskeletal: No fluid collection. Decreased range of motion is noted. Extremities: No clubbing, cyanosis noted. [ No edema noted.] Upper extremity pulses 2+. Lower extremity pulses 2+. Capillary refill less than 3 seconds. Skin: No unusual lesions or rashes. No skin breakdown appreciated. Neuro: Awake, alert and oriented 3. Moves all extremities well without hemiparesis or paralysis. No essential tremor is appreciated. Result/EKG - Labs CBC & BMP: 11/30/16 04:17 11/30/16 04:17 Lab Results: I have reviewed the past 24 hour labs Labs: Laboratory Results - last 24 hr 11/30/16 11/30/16 04:17 04:17 WBC 8.1 D RBC 4.84 Hgb 13.4 L Hct 38.8 L MCV 80.2 L MCH 28 MCHC 34.5 RDW 17.5 H Plt Count 377 MPV 11.0 Neut % (Auto) 53.0 Lymph % (Auto) 30.8 [place] % (Auto) 15.3 H Eos % (Auto) 0.0 Baso % (Auto) 0.4 Neut # (Auto) 4.3 Lymph # (Auto) 2.5 [place] # (Auto) 1.2 H Eos # (Auto) 0.0 Baso # (Auto) 0.0 Immature Gran % 0.5 Nucleated RBC % 0.0 Immature Gran # 0.04 Nucleated RBCs # 0.00 Immature Plt Fraction 0.0 Sodium 144 Potassium 4.5 Chloride 111 H Carbon Dioxide 27 Anion Gap 10.5 BUN 21 H Creatinine 0.80 GFR Calculation 154 BUN/Creatinine Ratio 26.00 H Glucose 76 Calculated Osmolality 287.8 Calcium 8.6 Magnesium 2.1 - Diagnostic Findings Procedure: Chest x-ray: report reviewed by me - EKG EKG results: interpreted by md EKG shows: sinus rhythm <Mira Rios - Last Filed: 11/30/16 14:53> Assessment and Plan (1) Left ventricular thrombus Status: Chronic Current Visit: Yes (2) Hypercoagulable state Status: Chronic Current Visit: Yes (3) Cardiomyopathy Status: Chronic Current Visit: Yes (4) HTN (hypertension) Status: Chronic Current Visit: Yes Qualifiers: Hypertension type: essential hypertension Qualified Code(s): I10 - Essential (primary) hypertension (5) Alcohol abuse Status: Chronic Current Visit: No (6) Medical non-compliance Status: Chronic Current Visit: No (7) Nicotine addiction Status: Chronic Current Visit: No Qualifiers: Nicotine product type: cigarettes Cardiology - PN: Subj Interval history: Patient had FOB this morning are awaiting those results. Would recommend starting Xarelto before discharge. He would likely need samples as he is unable to purchase. We have nothing further to add at this time from cardiology standpoint. His heart failure appears to be relatively well compensated. The patient is extremely stoic. Exam (Progress Note) - Constitutional Vitals: Period Temp Pulse Resp BP Sys/Crystal Pulse Ox Last 24 Hr 96.7 F-98.0 F 76-95 12-24 113-147/78-111 92-100 Result/EKG - Labs CBC & BMP: 11/30/16 04:17 11/30/16 04:17 Labs: Laboratory Results - last 24 hr 11/28/16 11/30/16 11/30/16 04:40 04:17 04:17 WBC 8.1 D RBC 4.84 Hgb 13.4 L Hct 38.8 L MCV 80.2 L MCH 28 MCHC 34.5 RDW 17.5 H Plt Count 377 MPV 11.0 Neut % (Auto) 53.0 Lymph % (Auto) 30.8 [place] % (Auto) 15.3 H Eos % (Auto) 0.0 Baso % (Auto) 0.4 Neut # (Auto) 4.3 Lymph # (Auto) 2.5 [place] # (Auto) 1.2 H Eos # (Auto) 0.0 Baso # (Auto) 0.0 Immature Gran % 0.5 Nucleated RBC % 0.0 Immature Gran # 0.04 Nucleated RBCs # 0.00 Immature Plt Fraction 0.0 Sodium 144 Potassium 4.5 Chloride 111 H Carbon Dioxide 27 Anion Gap 10.5 BUN 21 H Creatinine 0.80 GFR Calculation 154 BUN/Creatinine Ratio 26.00 H Glucose 76 Calculated Osmolality 287.8 Calcium 8.6 Magnesium 2.1 TB (QFT) Gold In Tube TNP TB Test (QFT) Nil TNP TB Test Mitogen - Nil TNP TB Test Antigen - Nil TNP
[2016-11-30] MEDS: DIGOXIN 0.125 MG TABLET PO SCH (13:31)
--- NOTE | 2016-11-30 14:26 | Hospitalist Progress Note ---
Assessment and Plan (1) Mural thrombus of heart Status: Acute Assessment and plan: The patient continues on Lovenox for pulmonary emboli and mural thrombus. The patient had bronchoscopy today without any endobronchial lesions being found. He had evidence of pulmonary hypertension. Current Visit: Yes (2) Bilateral pulmonary embolism Status: Acute Current Visit: No (3) DVT (deep venous thrombosis) Status: Chronic Current Visit: No Qualifiers: Affected thrombotic vein of extremity: femoral Chronicity: chronic Laterality: right (4) Presence of IVC filter Status: Chronic Current Visit: Yes Hospitalist: Subjective Interval history: The patient is moved the hospital due to pulmonary embolus. The patient is improving on anticoagulation. We are attempting to arrange Xarelto outpatient medication. Exam - Constitutional Vitals: Period Temp Pulse Resp BP Sys/Crystal Pulse Ox Last 24 Hr 96.7 F-98.0 F 76-95 12-24 113-147/78-111 92-100 General appearance: mild distress - Respiratory Respiratory exam: Present: clear to auscultation bilaterally - Cardiovascular Cardiovascular exam: Present: regular rate and rhythm Results - Labs CBC & BMP: 11/30/16 04:17 11/30/16 04:17 Lab Results: I have reviewed the past 24 hour labs
[2016-11-30] MEDS: CARVEDILOL 12.5 MG TABLET PO SCH (20:49)
[2016-12-01] MEDS: LEVOFLOXACIN INJ 750 MG in PREMIX 1 EACH IV SCH (01:58)
[2016-12-01] MEDS: ENOXAPARIN 100 MG/ML SYRINGE SUBCUT SCH (01:58)
[2016-12-01 04:49] LABS: Basophils # 0.1 10*3/uL (0.0-0.2); Basophils % 1.1 % (0.0-0.8); Hematocrit 37.8 VOL% (42.0-52.0); Hemoglobin 13.2 GM/DL (14.0-18.0); Immature Granulocytes % 0.3 %; Immature Granulocytes Absolute 0.02 #; Lymphocytes # 2.6 10*3/uL (1.4-4.0); Lymphocytes % 35.1 % (21.2-54.2); Mean Corpuscular HGB Conc 34.9 GM/DL (32-36); Mean Corpuscular Hemoglobin 28 PG (27-34); Mean Corpuscular Volume 79.4 FL (87-102); Monocytes # 1.2 10*3/uL (0.11-0.8); Monocytes % 16.4 % (1.7-12.7); Neutrophils # 3.5 10*3/uL (1.4-7.4); Neutrophils % 47.1 % (38.7-73.9); Platelet Count 407 T/CUMM (130-400); Red Blood Count 4.76 MC/CUMM (3.8-5.5); Red Cell Distribution Width 17.3 % (9.3-17.3); White Blood Count 7.3 T/CUMM (4-12)
[2016-12-01 05:08] LABS: Calcium 8.8 MG/DL (8.5-10.1); Osmolality,Calculated 280.3 MOS/KG (273-304); Potassium 4.3 MMOL/L (3.5-5.1)
[2016-12-01] MEDS: PIPERACILLIN/TAZOBACTAM 3,375 MG in SODIUM CHLORIDE 0.9% 100 ML IV SCH ×3 (05:29→21:46)
[2016-12-01 06:29] LABS: Eosinophils 1 % (0-10); Hypochromasia 2+; Lymphocytes 35 % (20-55); Platelet Estimate Increased; Segmented Neutrophils 45 % (50-85); Target Cells 1+; Total Cells Counted 100
[2016-12-01] MEDS ORDERED: WARFARIN 10 MG TABLET PO SCH (08:36)
--- NOTE | 2016-12-01 08:47 | Pulmonology Progress Note ---
Pulmonary - PN: Subj Interval history: This 41-year-old white male has a history of recurrent pulmonary emboli and has had strokes. He was noted on echo yesterday to have a severe cardiomyopathy with ejection fraction 15% and a mural thrombus inside the left ventricle. He has been noncompliant with taking anticoagulants in the past because he could not afford them and has been trying to obtain Medicaid. He should certainly be a candidate for Medicaid based on his severe medical problems. At any rate this is being looked into. At the present time he has cavitary infiltrate in the right lower lobe. Also has a loculated right pleural effusion. Interventional radiology was only able to obtain 20 cc of fluid yesterday. The glucose was quite low at 12 in the fluid. There were not a lot of white cells but it was mostly neutrophils. This is likely parapneumonic. Hopefully it is not an empyema. It would be difficult to drain the pleural fluid since it is loculated and it might require surgical drainage if it were an empyema. Tomorrow I will do a bronchoscope and obtain washings from the cavitary infiltrate to be sure we are not dealing with granulomatous disease. I do not plan any brushings or biopsies. We will not hold his Lovenox for the procedure. 11/30/2016 patient feeling a little better. No fever. He has what appears to be a parapneumonic effusion with negative cultures. Continuing empiric antibiotics. Plan bronchoscopy today to good bronchial washings from the right lower lobe and right middle lobe which is the area of the cavitation is on CT. Will not hold anticoagulants as we do not plan to do any brushings or biopsies. 12/01/2016 bronchial washings are negative for cultures and for smear for AFB thus far. TB skin test is negative. He does not have TB it appears. I think the right lower lobe cavitary infiltrate is due to pulmonary infarction with a superimposed bacterial infection. He could be changed to oral Augmentin and treated for about 7 more days later. Arrangements are being made for him to get Xarelto for home use. He needs help buying it. A form was sent yesterday that should get him the medications 3 days from that time which would be about Saturday. Patient is anxious to go home. Does not seem to understand the severity of his illness. He needs follow-up at a clinic in [place]. He needs social work to help him get [place] Medicaid. He should clearly be eligible for it based on his recurrent pulmonary emboli and severe cardiomyopathy with ejection fraction 15%. I discussed with him the dosing of Xarelto that would be 15 mg twice a day for 3 weeks and then 20 mg daily. I discussed with him the need for close follow-up at clinic close to his home. He lives in [facility]. Exam (Progress Note) - Constitutional Vitals: Period Temp Pulse Resp BP Sys/Crystal Pulse Ox Last 24 Hr 97.6 F-98.8 F 80-102 18-20 123-151/78-106 95-99 Exam: Patient's alert seems oriented vital signs normal pupils react to light. Throat is clear. Neck is supple. Chest reveals decreased breath sounds at the right base. Heart normal rate and rhythm PMI displaced to the left. No murmurs. Abdomen soft nontender no masses. Extremities she has some chronic edema in both legs. Calves are nontender. Little change from yesterday. Results - Labs CBC & BMP: 12/01/16 03:31 12/01/16 03:31 Lab Results: I have reviewed the past 24 hour labs Assessment and Plan (1) Bilateral pulmonary embolism Status: Acute Assessment and plan: Was noted on CT 3 months ago to have bilateral emboli. IVC filter placed at that time. Xarelto prescribed. Patient relates that he is not able to bite because it is expensive. He was set up to follow-up with [facility]. He needs help getting his medications. Needs to be on Medicaid at least. Coumadin would be difficult in him due to his alcohol history and noncompliance history. The right lower lobe abnormalities may be sequelae of previous pulmonary embolism with pulmonary infarction. 11/29/2016 patient has had chronic pulmonary emboli unresolved. Also has an LV thrombus. Needs lifelong anticoagulants. Had Xarelto prescribed earlier but was not able to afford to purchase it. Presently on full dose subcu Lovenox. 11/30/2016 patient needs lifelong anticoagulation. Trying to make arrangements through social work. 12/01/2016 he has incompletely treated bilateral pulmonary emboli. Probably right lung infarction due to that. Needs lifelong anticoagulants. Current Visit: No (2) Medical non-compliance Status: Chronic Assessment and plan: Not taking anticoagulants despite being told that he may without taking them based on Dr. Pisano's progress note from last admission. 11/29/2016 financial problems involving his medicines. 12/01/2016 very dangerous situation and that he does not go for follow-ups and does not purchase his medications. Understandably is quite expensive for him. We are getting him some help to get the medicines. Current Visit: No (3) DVT (deep venous thrombosis) Status: Chronic Assessment and plan: Has IVC umbrella. Taking only aspirin. 11/30/2016 again needs lifelong anticoagulants despite the umbrella. Current Visit: No Qualifiers: Affected thrombotic vein of extremity: femoral Chronicity: chronic Laterality: right (4) Nicotine addiction Status: Chronic Assessment and plan: Increased risk for DVT. Current Visit: No Qualifiers: Nicotine product type: cigarettes (5) Pneumonia Status: Chronic Assessment and plan: He has had chills and coughing up phlegm. Cavitary infiltrate in the lower part of the right lung may well be pneumonia. Agree with empiric antibiotics. Check sputum culture. Needs pleural fluid going to be sure he does not have an empyema. May require bronchoscopy if he does not respond. 11/29/2016 it appears that he has a cavitary pneumonia in the right lower lobe. We are treating this as pneumonia. I will bronchoscope him tomorrow and obtain washings to be sure we are not dealing with chronic granulomatous infection. Could also be an area of pulmonary infarction. However he has not been coughing up blood. 11/30/2016 continuing empiric antibiotics for pneumonia. Bronchial washings hopefully will give us an organism. Also will be used to rule out TB or fungus. 12/01/2016 cultures have been negative. He does have an infiltrate in the right lower lobe with some cavitation. I think this is most likely an area of pulmonary infarction. Likely has secondary infection there. Cultures negative thus far from bronchial washings. Would suggest treating him with oral Augmentin for about a week post discharge. Current Visit: Yes (6) CHF (congestive heart failure) Status: Acute Assessment and plan: Has elevated BNP. Echo pending. 11/29/2016 has an ejection fraction 15% in his left ventricle. Severe nonischemic cardiomyopathy. Also has left ventricular thrombus. 11/30/16 patient has severe cardiomyopathy. 12/01/2016 has severe cardiomyopathy. Defer to cardiology as far as follow-up there. Prognosis poor from that. Current Visit: Yes Qualifiers: Congestive heart failure type: combined Congestive heart failure chronicity : acute on chronic Qualified Code(s): I50.43 - Acute on chronic combined systolic (congestive) and diastolic (congestive) heart failure
[2016-12-01] MEDS: LOSARTAN 25 MG TABLET PO SCH (09:00)
[2016-12-01] MEDS: CARVEDILOL 12.5 MG TABLET PO SCH ×2 (09:00→21:44)
[2016-12-01] MEDS: FUROSEMIDE 40 MG TABLET PO SCH (09:00)
[2016-12-01] MEDS: SPIRONOLACTONE 25 MG TABLET PO SCH (09:00)
[2016-12-01] MEDS: PANTOPRAZOLE 40 MG TABLET PO SCH (09:00)
[2016-12-01] MEDS: ASPIRIN EC 81 MG TABLET PO SCH ×2 (09:00→21:44)
[2016-12-01] MEDS ORDERED: CIPROFLOXACIN 500 MG TABLET PO SCH (09:00)
[2016-12-01] MEDS: LORazepam 0.5 MG TABLET PO SCH ×3 (09:01→21:44)
[2016-12-01] MEDS: CIPROFLOXACIN 500 MG TABLET PO SCH ×2 (09:40→21:44)
[2016-12-01 10:03] LABS: INR 1.3; PT Patient Result 13.7 SECS
--- NOTE | 2016-12-01 10:06 | Event Note ---
The patient hemoglobin hematocrit remained stable on current dose of rivaroxaban. His vital signs are stable. Nothing further to add at this time will continue to follow peripherally.
[2016-12-01] MEDS: DIGOXIN 0.125 MG TABLET PO SCH (14:08)
--- NOTE | 2016-12-01 14:22 | Hospitalist Progress Note ---
Assessment and Plan (1) Mural thrombus of heart Status: Acute Assessment and plan: The patient continues on Lovenox for pulmonary emboli and mural thrombus. Pathology reports reveal no neoplasm in the lung. The patient continues on IV antibiotics and started the patient on Coumadin today. He will either go home on Coumadin or Xarelto at the time of discharge. Current Visit: Yes (2) Bilateral pulmonary embolism Status: Acute Current Visit: No (3) DVT (deep venous thrombosis) Status: Chronic Current Visit: No Qualifiers: Affected thrombotic vein of extremity: femoral Chronicity: chronic Laterality: right (4) Presence of IVC filter Status: Chronic Current Visit: Yes Hospitalist: Subjective Interval history: Mr. Daniels is up to commode he is not having any new symptoms. Exam - Constitutional Vitals: Period Temp Pulse Resp BP Sys/Crystal Pulse Ox Last 24 Hr 97.4 F-98.8 F 80-102 18-20 124-151/90-106 95-99 General appearance: no acute distress - Respiratory Respiratory exam: Present: clear to auscultation bilaterally - Cardiovascular Cardiovascular exam: Present: regular rate and rhythm Results - Labs CBC & BMP: 12/01/16 03:31 12/01/16 03:31 Lab Results: I have reviewed the past 24 hour labs
[2016-12-01] MEDS: RIVAROXABAN 15 MG TABLET PO SCH (16:57)
[2016-12-02] MEDS: PIPERACILLIN/TAZOBACTAM 3,375 MG in SODIUM CHLORIDE 0.9% 100 ML IV SCH ×3 (05:25→21:33)
[2016-12-02 05:45] LABS: Basophils # 0.1 10*3/uL (0.0-0.2); Basophils % 0.9 % (0.0-0.8); Hemoglobin 13.5 GM/DL (14.0-18.0); Immature Granulocytes % 0.3 %; Immature Granulocytes Absolute 0.02 #; Lymphocytes # 2.3 10*3/uL (1.4-4.0); Lymphocytes % 31.7 % (21.2-54.2); Mean Corpuscular HGB Conc 34.6 GM/DL (32-36); Mean Corpuscular Hemoglobin 27 PG (27-34); Mean Corpuscular Volume 78.8 FL (87-102); Mean Platelet Volume 10.8 FL (9.6-12.0); Monocytes # 1.1 10*3/uL (0.11-0.8); Monocytes % 14.6 % (1.7-12.7); Neutrophils # 3.9 10*3/uL (1.4-7.4); Neutrophils % 52.5 % (38.7-73.9); Platelet Count 413 T/CUMM (130-400); Red Blood Count 4.95 MC/CUMM (3.8-5.5); Red Cell Distribution Width 16.9 % (9.3-17.3); White Blood Count 7.4 T/CUMM (4-12)
[2016-12-02 06:09] LABS: INR 1.4; PT Patient Result 15.1 SECS
[2016-12-02 06:13] LABS: Calcium 8.7 MG/DL (8.5-10.1); Magnesium 1.9 MG/DL (1.8-2.4); Osmolality,Calculated 279.4 MOS/KG (273-304); Potassium 4.2 MMOL/L (3.5-5.1)
[2016-12-02] MEDS: SPIRONOLACTONE 25 MG TABLET PO SCH (09:17)
[2016-12-02] MEDS: LORazepam 0.5 MG TABLET PO SCH ×2 (09:17→21:32)
[2016-12-02] MEDS: CIPROFLOXACIN 500 MG TABLET PO SCH ×2 (09:18→21:33)
[2016-12-02] MEDS: RIVAROXABAN 15 MG TABLET PO SCH ×2 (09:18→17:06)
[2016-12-02] MEDS: FUROSEMIDE 40 MG TABLET PO SCH (09:18)
[2016-12-02] MEDS: PANTOPRAZOLE 40 MG TABLET PO SCH (09:18)
[2016-12-02] MEDS: ASPIRIN EC 81 MG TABLET PO SCH ×2 (09:18→21:32)
[2016-12-02] MEDS: LOSARTAN 25 MG TABLET PO SCH (09:19)
[2016-12-02] MEDS: CARVEDILOL 12.5 MG TABLET PO SCH ×2 (09:19→21:32)
--- NOTE | 2016-12-02 09:24 | Pulmonology Progress Note ---
Pulmonary - PN: Subj Interval history: This 41-year-old white male has a history of recurrent pulmonary emboli and has had strokes. He was noted on echo yesterday to have a severe cardiomyopathy with ejection fraction 15% and a mural thrombus inside the left ventricle. He has been noncompliant with taking anticoagulants in the past because he could not afford them and has been trying to obtain Medicaid. He should certainly be a candidate for Medicaid based on his severe medical problems. At any rate this is being looked into. At the present time he has cavitary infiltrate in the right lower lobe. Also has a loculated right pleural effusion. Interventional radiology was only able to obtain 20 cc of fluid yesterday. The glucose was quite low at 12 in the fluid. There were not a lot of white cells but it was mostly neutrophils. This is likely parapneumonic. Hopefully it is not an empyema. It would be difficult to drain the pleural fluid since it is loculated and it might require surgical drainage if it were an empyema. Tomorrow I will do a bronchoscope and obtain washings from the cavitary infiltrate to be sure we are not dealing with granulomatous disease. I do not plan any brushings or biopsies. We will not hold his Lovenox for the procedure. 11/30/2016 patient feeling a little better. No fever. He has what appears to be a parapneumonic effusion with negative cultures. Continuing empiric antibiotics. Plan bronchoscopy today to good bronchial washings from the right lower lobe and right middle lobe which is the area of the cavitation is on CT. Will not hold anticoagulants as we do not plan to do any brushings or biopsies. 12/01/2016 bronchial washings are negative for cultures and for smear for AFB thus far. TB skin test is negative. He does not have TB it appears. I think the right lower lobe cavitary infiltrate is due to pulmonary infarction with a superimposed bacterial infection. He could be changed to oral Augmentin and treated for about 7 more days later. Arrangements are being made for him to get Xarelto for home use. He needs help buying it. A form was sent yesterday that should get him the medications 3 days from that time which would be about Saturday. Patient is anxious to go home. Does not seem to understand the severity of his illness. He needs follow-up at a clinic in [place]. He needs social work to help him get [place] Medicaid. He should clearly be eligible for it based on his recurrent pulmonary emboli and severe cardiomyopathy with ejection fraction 15%. I discussed with him the dosing of Xarelto that would be 15 mg twice a day for 3 weeks and then 20 mg daily. I discussed with him the need for close follow-up at clinic close to his home. He lives in [facility]. 12/02/2016 patient feeling much better. Should have the Xarelto available for home use tomorrow. Exam (Progress Note) - Constitutional Vitals: Period Temp Pulse Resp BP Sys/Crystal Pulse Ox Last 24 Hr 97.2 F-97.8 F 83-114 16-20 110-147/52-103 96-100 Exam: Patient's alert seems oriented vital signs normal pupils react to light. Throat is clear. Neck is supple. Chest reveals decreased breath sounds at the right base. Heart normal rate and rhythm PMI displaced to the left. No murmurs. Abdomen soft nontender no masses. Extremities she has some chronic edema in both legs. Calves are nontender. Little change from yesterday. Results - Labs CBC & BMP: 12/02/16 04:57 12/02/16 04:57 Lab Results: I have reviewed the past 24 hour labs Assessment and Plan (1) Bilateral pulmonary embolism Status: Acute Assessment and plan: Was noted on CT 3 months ago to have bilateral emboli. IVC filter placed at that time. Xarelto prescribed. Patient relates that he is not able to bite because it is expensive. He was set up to follow-up with [facility]. He needs help getting his medications. Needs to be on Medicaid at least. Coumadin would be difficult in him due to his alcohol history and noncompliance history. The right lower lobe abnormalities may be sequelae of previous pulmonary embolism with pulmonary infarction. 11/29/2016 patient has had chronic pulmonary emboli unresolved. Also has an LV thrombus. Needs lifelong anticoagulants. Had Xarelto prescribed earlier but was not able to afford to purchase it. Presently on full dose subcu Lovenox. 11/30/2016 patient needs lifelong anticoagulation. Trying to make arrangements through social work. 12/01/2016 he has incompletely treated bilateral pulmonary emboli. Probably right lung infarction due to that. Needs lifelong anticoagulants. 12/02/2016 ready for discharge on oral anticoagulants. Current Visit: No (2) Medical non-compliance Status: Chronic Assessment and plan: Not taking anticoagulants despite being told that he may without taking them based on Dr. Pisano's progress note from last admission. 11/29/2016 financial problems involving his medicines. 12/01/2016 very dangerous situation and that he does not go for follow-ups and does not purchase his medications. Understandably is quite expensive for him. We are getting him some help to get the medicines. Current Visit: No (3) DVT (deep venous thrombosis) Status: Chronic Assessment and plan: Has IVC umbrella. Taking only aspirin. 11/30/2016 again needs lifelong anticoagulants despite the umbrella. Current Visit: No Qualifiers: Affected thrombotic vein of extremity: femoral Chronicity: chronic Laterality: right (4) Nicotine addiction Status: Chronic Assessment and plan: Increased risk for DVT. Current Visit: No Qualifiers: Nicotine product type: cigarettes (5) Pneumonia Status: Chronic Assessment and plan: He has had chills and coughing up phlegm. Cavitary infiltrate in the lower part of the right lung may well be pneumonia. Agree with empiric antibiotics. Check sputum culture. Needs pleural fluid going to be sure he does not have an empyema. May require bronchoscopy if he does not respond. 11/29/2016 it appears that he has a cavitary pneumonia in the right lower lobe. We are treating this as pneumonia. I will bronchoscope him tomorrow and obtain washings to be sure we are not dealing with chronic granulomatous infection. Could also be an area of pulmonary infarction. However he has not been coughing up blood. 11/30/2016 continuing empiric antibiotics for pneumonia. Bronchial washings hopefully will give us an organism. Also will be used to rule out TB or fungus. 12/01/2016 cultures have been negative. He does have an infiltrate in the right lower lobe with some cavitation. I think this is most likely an area of pulmonary infarction. Likely has secondary infection there. Cultures negative thus far from bronchial washings. Would suggest treating him with oral Augmentin for about a week post discharge. 12/02/2016 oral antibiotic should suffice. Current Visit: Yes (6) CHF (congestive heart failure) Status: Acute Assessment and plan: Has elevated BNP. Echo pending. 11/29/2016 has an ejection fraction 15% in his left ventricle. Severe nonischemic cardiomyopathy. Also has left ventricular thrombus. 11/30/16 patient has severe cardiomyopathy. 12/01/2016 has severe cardiomyopathy. Defer to cardiology as far as follow-up there. Prognosis poor from that. Current Visit: Yes Qualifiers: Congestive heart failure type: combined Congestive heart failure chronicity : acute on chronic Qualified Code(s): I50.43 - Acute on chronic combined systolic (congestive) and diastolic (congestive) heart failure
--- NOTE | 2016-12-02 12:56 | Cardiology Progress Note ---
Assessment and Plan (1) Left ventricular thrombus Status: Chronic Assessment and plan: This does not appear to be acute the patient actually thinks he is may be been told that he has this before. This is likely the source of his TIAs and strokes. I think he needs anticoagulation for life. He appears to clearly have some sort of hypercoagulable state that has not apparently not been documented. Current Visit: Yes (2) Hypercoagulable state Status: Chronic Current Visit: Yes (3) Cardiomyopathy Status: Chronic Assessment and plan: He states that he had normal coronaries at [facility] this may be related to alcohol or other source of nonischemic cardiomyopathy. He appears to have regional wall motion abnormality this may be related his hypercoagulable situation. I would like to see the cath films or report before making final decision still awaiting films/report from [facility] Current Visit: Yes (4) HTN (hypertension) Status: Chronic Current Visit: Yes Qualifiers: Hypertension type: essential hypertension Qualified Code(s): I10 - Essential (primary) hypertension (5) Alcohol abuse Status: Chronic Current Visit: No (6) Medical non-compliance Status: Chronic Current Visit: No (7) Nicotine addiction Status: Chronic Current Visit: No Qualifiers: Nicotine product type: cigarettes Cardiology - PN: Subj Interval history: The very difficult situation. The patient cannot afford his medications and also has no transportation to and from healthcare facility to have his INR checked. Dr. Don has changed to Coumadin and I concur. Is certainly better to have the patient taken medication and what he will not take for his clots. The patient hopefully can qualify for some sort of assistance to help with his medications or possibly even home health to come check his PT is on a regular basis. I discussed with the patient and he seems to be "scared" of Coumadin because it is "dangerous." I did explain to him the Coumadin was a high risk medicine but having a clot in your heart and her lungs was even worse. He seemed perplexed but voiced understanding. Exam (Progress Note) - Constitutional Vitals: Period Temp Pulse Resp BP Sys/Crystal Pulse Ox Last 24 Hr 97.2 F-98.2 F 78-114 16-20 110-147/52-103 96-100 - Respiratory Respiratory exam: Present: clear to auscultation bilaterally - Cardiovascular Cardiovascular exam: Present: regular rate and rhythm (PMI is laterally displaced) - GI/Abdominal GI/Abdominal exam: Present: normal bowel sounds Result/EKG - Labs CBC & BMP: 12/02/16 04:57 12/02/16 04:57 Labs: Laboratory Results - last 24 hr 12/02/16 12/02/16 12/02/16 04:57 04:57 04:57 WBC 7.4 RBC 4.95 Hgb 13.5 L Hct 39.0 L MCV 78.8 L MCH 27 MCHC 34.6 RDW 16.9 Plt Count 413 H MPV 10.8 Neut % (Auto) 52.5 Lymph % (Auto) 31.7 [place] % (Auto) 14.6 H Eos % (Auto) 0.0 Baso % (Auto) 0.9 H Neut # (Auto) 3.9 Lymph # (Auto) 2.3 [place] # (Auto) 1.1 H Eos # (Auto) 0.0 Baso # (Auto) 0.1 Immature Gran % 0.3 Nucleated RBC % 0.0 Immature Gran # 0.02 Nucleated RBCs # 0.00 Immature Plt Fraction 0.0 INR 1.4 PT Patient/Control Mix 15.1 Sodium 140 Potassium 4.2 Chloride 107 Carbon Dioxide 26 Anion Gap 11.2 BUN 17 Creatinine 0.80 GFR Calculation 153 BUN/Creatinine Ratio 21.00 H Glucose 82 Calculated Osmolality 279.4 Calcium 8.7 Magnesium 1.9
--- NOTE | 2016-12-02 12:56 | Hospitalist Progress Note ---
Assessment and Plan (1) Mural thrombus of heart Status: Acute Assessment and plan: The patient continues on Xarelto for pulmonary emboli and mural thrombus. Pathology reports reveal no neoplasm in the lung. The patient continues on IV antibiotics . He will either go home on Xarelto at the time of discharge, on condition that the home health care case manager can arrange the patient to receive the medicine. Current Visit: Yes (2) Bilateral pulmonary embolism Status: Acute Current Visit: No (3) DVT (deep venous thrombosis) Status: Chronic Current Visit: No Qualifiers: Qualified Code(s): I82.511 - Chronic embolism and thrombosis of right femoral vein (4) Presence of IVC filter Status: Chronic Current Visit: Yes Hospitalist: Subjective Interval history: The patient has thromboembolic disease and has been noncompliant with Xarelto in the past. The patient developed pulmonary infarct due to embolus. The patient has mural thrombus in the heart. The patient is now anticoagulated with Xarelto and home health care case manager is assisting the patient to receive the medicine at home in [facility]. Exam - Constitutional Vitals: Period Temp Pulse Resp BP Sys/Crystal Pulse Ox Last 24 Hr 97.2 F-98.2 F 78-114 16-20 110-147/52-103 96-100 General appearance: no acute distress Exam: The patient is ambulatory in the room without distress - Respiratory Respiratory exam: Present: clear to auscultation bilaterally - Cardiovascular Cardiovascular exam: Present: regular rate and rhythm - GI/Abdominal GI/Abdominal exam: Present: normal bowel sounds Results - Labs CBC & BMP: 12/02/16 04:57 12/02/16 04:57 Lab Results: I have reviewed the past 24 hour labs
[2016-12-02] MEDS: DIGOXIN 0.125 MG TABLET PO SCH (14:25)
[2016-12-03] MEDS: PIPERACILLIN/TAZOBACTAM 3,375 MG in SODIUM CHLORIDE 0.9% 100 ML IV SCH ×2 (05:06→13:51)
[2016-12-03 05:21] LABS: Basophils # 0.1 10*3/uL (0.0-0.2); Basophils % 1.1 % (0.0-0.8); Hematocrit 37.6 VOL% (42.0-52.0); Hemoglobin 13.3 GM/DL (14.0-18.0); Immature Granulocytes % 0.3 %; Immature Granulocytes Absolute 0.02 #; Lymphocytes # 2.1 10*3/uL (1.4-4.0); Lymphocytes % 32.4 % (21.2-54.2); Mean Corpuscular HGB Conc 35.4 GM/DL (32-36); Mean Corpuscular Hemoglobin 28 PG (27-34); Mean Corpuscular Volume 79.2 FL (87-102); Mean Platelet Volume 10.3 FL (9.6-12.0); Monocytes % 15.2 % (1.7-12.7); Neutrophils # 3.4 10*3/uL (1.4-7.4); Platelet Count 406 T/CUMM (130-400); Red Blood Count 4.75 MC/CUMM (3.8-5.5); Red Cell Distribution Width 17.2 % (9.3-17.3); White Blood Count 6.6 T/CUMM (4-12)
[2016-12-03 05:38] LABS: INR 1.5; PT Patient Result 16.2 SECS
[2016-12-03 05:58] LABS: Calcium 8.7 MG/DL (8.5-10.1); Magnesium 2.1 MG/DL (1.8-2.4); Osmolality,Calculated 280.3 MOS/KG (273-304); Potassium 4.3 MMOL/L (3.5-5.1)
--- NOTE | 2016-12-03 08:03 | Event Note ---
Patient is waiting to get his Xarelto for home use. He should be on 15 mg twice daily for 3 weeks, which would be about 2 weeks now. Then change him to 20 mg daily long-term. Needs follow-up at a clinic in the [place] area. Needs cardiology follow-up long-term for his severe nonischemic cardiomyopathy. Should be on lifelong anticoagulants. Needs antibiotics for another 5 days by mouth. I will sign off. Please call if needed further
[2016-12-03 08:24] VITALS: BP 137/83
[2016-12-03] MEDS: FUROSEMIDE 40 MG TABLET PO SCH (08:50)
[2016-12-03] MEDS: SPIRONOLACTONE 25 MG TABLET PO SCH (08:50)
[2016-12-03] MEDS: ASPIRIN EC 81 MG TABLET PO SCH (08:50)
[2016-12-03] MEDS: LORazepam 0.5 MG TABLET PO SCH (08:51)
[2016-12-03] MEDS: CARVEDILOL 12.5 MG TABLET PO SCH (08:51)
[2016-12-03] MEDS: CIPROFLOXACIN 500 MG TABLET PO SCH (08:51)
[2016-12-03] MEDS: LOSARTAN 25 MG TABLET PO SCH (08:51)
[2016-12-03] MEDS: RIVAROXABAN 15 MG TABLET PO SCH (08:51)
[2016-12-03] MEDS: PANTOPRAZOLE 40 MG TABLET PO SCH (08:51)
--- NOTE | 2016-12-03 11:31 | Discharge Summary ---
<Linda Kirkland - Last Filed: 12/03/16 12:47> Hospital Course - Hospital Course Hospital Course: Mr Daniels 41 y/o with PMHx: CHF, Hypertension, CVA, and a past PE On 11/27/16 presented to the ED for shortness of breath with worsening on exertion. IN ED: EKG: sinus rhythm. CT Chest: No acute PE identified; chronic thrombus right lower lobe pulmonary artery is present similar to the previous exam, resolution of the right upper lobe PE from 08/13/2016; right infrahilar mass like density with central cavitation concerning for pneumonia measuring 55 x 45 mm in size, severe cardiomegaly unchanged. CXR: No pneumothorax. LABS: Troponin 0.101; BNP 455; Urine negative for infection. Hospitalist Services consulted for further evaluation and admission. Consult Pulmonology. Consult Cardiology. Echo shows severe cardiomyopathy with EF 15% and a mural thrombus inside the left ventricle. Patient does have a thromboembolic disease and was started on Xarelto. Started on empiric antibiotics; Sputum Culture final: normal jai. TB skin test negative. Blood culture final: no growth. Bronchoscopy with bronchial washings and pleural fluid culture both resulted normal jai. Pathology reports reveal no neoplasm in the lung. Today 12/03/16 patient has reached maximal benefit of inpatient stay and will be discharged to home. Pulmonary recommends Xarelto for home use. Patient will be sent home with Xarelto supply and care for assistance with prescription. Needs follow-up at a clinic in the [facility]. He will require lifelong anticoagulants. Needs antibiotics for another 5 days by mouth. He will follow- up with his pcp and cardiology. Discharge Plan - Discharge Data Disposition: Disch To Home/Self Care - Discharge Medications New Ciprofloxacin Tab [Cipro Tab] 500 mg PO Q12HR #10 tablet Losartan [Cozaar] 25 mg PO DAILY #60 tablet Continue Carvedilol [Coreg] 6.25 mg PO BID #60 tablet Digoxin Tab [Lanoxin Tab] 0.125 mg PO DAILY@1300 #30 tablet Aspirin EC Tab 81 mg PO BID Spironolactone 12.5 mg PO QAM Furosemide Tab [Lasix Tab] 40 mg PO QAM Rivaroxaban [Xarelto] 15 mg PO BID W/MEALS #42 tablet - Follow Up or Referral - Forms/Instructions Exam - Constitutional Vitals: Period Temp Pulse Resp BP Sys/Crystal Pulse Ox Last 24 Hr 97.2 F-98 F 83-89 18-20 114-137/77-87 94-100 Discharge Results Procedures and tests throughout hospitalization: Pending Orders 11/28/16 09:46 Cytology Request Routine 11/28/16 10:15 AFB Culture/Smears Routine 11/30/16 07:47 Cytology Request Routine 11/30/16 07:58 AFB Culture/Smears Routine Fungal Culture w/ Prep Routine 11/30/16 13:40 QuantiFERON-TB Gold In-Tube, B Stat 12/04/16 04:00 Prothrombin Time INR IN AM 12/05/16 04:00 Prothrombin Time INR IN AM Labs on day of discharge: Labs from last 24 hours 12/03/16 12/03/16 12/03/16 04:22 04:22 04:22 WBC 6.6 RBC 4.75 Hgb 13.3 L Hct 37.6 L MCV 79.2 L MCH 28 MCHC 35.4 RDW 17.2 Plt Count 406 H MPV 10.3 Neut % (Auto) 51.0 Lymph % (Auto) 32.4 [place] % (Auto) 15.2 H Eos % (Auto) 0.0 Baso % (Auto) 1.1 H Neut # (Auto) 3.4 Lymph # (Auto) 2.1 [place] # (Auto) 1.0 H Eos # (Auto) 0.0 Baso # (Auto) 0.1 Immature Gran % 0.3 Nucleated RBC % 0.0 Immature Gran # 0.02 Nucleated RBCs # 0.00 Immature Plt Fraction 0.0 INR 1.5 PT Patient/Control Mix 16.2 Sodium 141 Potassium 4.3 Chloride 108 H Carbon Dioxide 26 Anion Gap 11.3 BUN 15 Creatinine 0.80 GFR Calculation 153 BUN/Creatinine Ratio 18.00 Glucose 89 Calculated Osmolality 280.3 Calcium 8.7 Magnesium 2.1 DS: Provider Date of admission: 11/27/16 22:38 Primary care physician: . No PCP Attending physician on admission: Peterson Mckeon MD Consults: 11/28/16 00:06 Consult to Physician [CONS] Routine Comment: CAP Consulting Provider: Andre Deshpande Consult to Specialist Group: Pulmonology Person Notified: Adele Date Notified: 11/28/16 Time Notified: 09:05 11/28/16 00:32 Consult to Dietitian [CONS] Routine Reason for Dietitian: Dietary Consult 11/28/16 07:31 Consult to Case Mgmt/Social Srvs [CONS] Routine Reason for Case Mgmt/Social Srvs: Other Consult Comment: Needs help getting medications, and applying for Medicaid. 11/28/16 10:54 Consult to Physician [CONS] Routine Comment: CIS consult - clot in right ventricle per echo Consulting Provider: Mira Cain Consult to Specialist Group: Cardiology Person Notified: Antwon Date Notified: 11/28/16 Time Notified: 11:00 Discharging clinician: Linda Kirkland NP <Johanna Pichardo - Last Filed: 12/03/16 14:17> Hospital Course - Time spent with patient Time with patient DS: Greater than 30 minutes (35) Diagnosis - Discharge Diagnosis (1) Bilateral pulmonary embolism Status: Chronic (2) Medical non-compliance Status: Chronic (3) Presence of IVC filter Status: Chronic (4) Mural thrombus of heart Status: Chronic Discharge Plan - Discharge Data Condition at Discharge: Stable Discharge Diet: heart healthy Activity: increase activity as tolerated Hygiene: no restrictions Weight Bearing at Discharge: weight bear as tolerated Contact your physician if you experience:: Shortness of breath Exam - Constitutional General appearance: normal weight - Head Head exam: Present: normocephalic, atraumatic - Eye Eye exam: Present: EOMI Pupils: Present: ALEXA - ENT ENT exam: Present: normal exam - Neck Neck exam: Present: normal inspection - Respiratory Respiratory exam: Present: clear to auscultation bilaterally. Absent: wheezes - Cardiovascular Cardiovascular exam: Present: regular rate and rhythm - GI/Abdominal GI/Abdominal exam: Present: normal bowel sounds, soft. Absent: tenderness, rebound - Extremities Exam Extremities exam: Present: normal inspection - Back Exam Back exam: Present: normal inspection - Neurological Exam Neurological exam: Present: alert, oriented X3 - Psychiatric Psychiatric exam: Present: normal affect, normal mood - Skin Skin exam: Present: warm, intact
--- NOTE | 2016-12-03 12:57 | Cardiology Progress Note ---
Assessment and Plan - Time spent with patient Time spent with patient: Greater than 30 minutes Time spent discussing smoking cessation with patient: 3 to 10 minutes (1) Alcohol abuse Status: Chronic Assessment and plan: Yesterday, Ativan was initiated for prevention of delirium tremens. At this point, continue Ativan. Current Visit: No (2) Medical non-compliance Status: Chronic Assessment and plan: Again, reiterated the importance of medical compliance and follow-up. Current Visit: No (3) DVT (deep venous thrombosis) Status: Chronic Assessment and plan: Diagnosed with DVT right lower extremity August 13, 2016, right superficial femoral vein and popliteal vein. Continue with therapeutic doses of Lovenox. He does have an IVC filter in place. Poor candidate for Coumadin due to history of noncompliance and alcoholism Current Visit: No Qualifiers: Affected thrombotic vein of extremity: femoral Chronicity: chronic Laterality: right (4) Nicotine addiction Status: Chronic Assessment and plan: Greater than 5 minutes was spent today discussing the merits of tobacco cessation Current Visit: No Qualifiers: Nicotine product type: cigarettes (5) Pneumonia Status: Chronic Assessment and plan: It is believed a cavitary infiltrate in the lower part of the right lung may be pneumonia. Underwent bronchoscopy this morning. Await results. Current Visit: Yes (6) CHF (congestive heart failure) Status: Acute Assessment and plan: Suspect this is acute on chronic secondary to systolic dysfunction (EF 15%) and diastolic dysfunction. NYHA Class II. Continue diuresing, daily weight and strict I&O. Current Visit: Yes Qualifiers: Congestive heart failure type: combined Congestive heart failure chronicity : acute on chronic Qualified Code(s): I50.43 - Acute on chronic combined systolic (congestive) and diastolic (congestive) heart failure (7) HTN (hypertension) Status: Chronic Assessment and plan: Increasing beta-abbie today for continued diastolic hypertension. Continue ARB. Current Visit: Yes Qualifiers: Hypertension type: essential hypertension Qualified Code(s): I10 - Essential (primary) hypertension (8) Left ventricular thrombus Status: Chronic Assessment and plan: Therapeutic doses of Lovenox continue. Patient will need lifelong anticoagulation. Current Visit: Yes (9) Hypercoagulable state Status: Chronic Assessment and plan: Patient will need lifelong anticoagulation. Currently taking Lovenox. Current Visit: Yes (10) Presence of IVC filter Status: Chronic Assessment and plan: Placed August 2016. Continue current plan of care Current Visit: Yes (11) NICM (nonischemic cardiomyopathy) Status: Chronic Assessment and plan: Continue Coreg, Losartan, Spironolactone. Patient had heart catheterization at [facility] in March 2016 and nonischemic cardiomyopathy diagnosed. 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 Reinforced the need for continued cessation from alcohol use Current Visit: Yes (12) Pulmonary embolism Status: Chronic Assessment and plan: No acute PE identified per CT this admission however chronic thrombus of the right lower lobe pulmonary artery is present similar to findings on the previous CT August 2016. IVC filter was placed approximately 3 months ago when he was found to have bilateral emboli. Patient was given Xarelto however he cannot afford Xarelto therefore he has not been taking. Poor candidate for Coumadin administration due to his history of noncompliance, alcohol abuse. He is currently taking therapeutic doses of Lovenox. Case management has been consulted for assistance with this situation. Patient should qualify for disability given the severity of his multiple chronic conditions. Current Visit: Yes Qualifiers: Chronicity: chronic Cardiology - PN: Subj Interval history: DIRECTOR OF ARCHIVES: (NEW) DR. RIOS Mr. Daniels is a 41 year old male with extensive past medical history, admitted for shortness of breath with cavitary lesions in his lungs. Routine transthoracic echo was performed yersterday and noted to have a severely depressed (EF 15%), Grade III diastolic dysfunction, apical akinesis and large apical thrombus in the left ventricle. Apparently, patient has a history of hypercoagulable state with recurrent DVT, TIAs and stroke. He has IVC filter placed several months ago. Patient reports he had heart catheterization March 2016 at [facility] and was told his coronaries were clean, weak heart. He reports he was also told he had to blood clots inside the heart at that time. Patient reports he recognizes that he is an alcoholic. He states he drinks several pints of whiskey each day for the past 20 years. His last drink was the day he was admitted. Patient reports he was unable to afford Xarelto due to cost, unable to take warfarin due to inability to reliably get back and forth to the doctor for management of INR. NOVEMBER 29, 2016: Patient underwent thoracentesis yesterday as patient had a cavitary infiltrate in the right lower lobe, loculated right pleural effusion. He is scheduled for bronchoscopy tomorrow morning to obtain washings from the cavitary infiltrate. Lovenox will not be held as there is no plan for brushings or biopsies. Because the patient has such a severe history of alcoholism, I am going to add a very low-dose of Ativan today. He reports he is beginning to feel somewhat nervous today. Labs are stable, no arrhythmia noted, vital signs are stable. I will further discuss with Dr. Rios and await additional recommendations. NOVEMBER 30, 2016: Patient underwent fiberoptic bronchoscopy with washings of the right lower lobe, right middle lobe this morning. He tolerated without problems. Reports his breathing is better this morning. Diastolic blood pressure consistently high 90s and low 100s. Will increase his Coreg for better control, continue Losartan. Minimal change in his weight overnight. Therapeutic doses of Lovenox continued. He will need lifelong anticoagulation. He has been a poor candidate for Coumadin in the past due to noncompliance and alcohol abuse. Case management is working to see if they can assist with programs which supply or reduce the cost of novel anticoagulants such as Xarelto. Continue with diuresing. Will further discuss with Dr. Rios and await additional recommendations DECEMBER 03, 2016: Over the weekend, patient has continued to improve. He is scheduled for discharge today. He was started on empiric antibiotics. Sputum culture final: Normal jai. TB skin test negative. Blood culture was final: No growth. Bronchoscopy with bronchial washings and pleural fluid Culture both resulted in normal floor. Pathology report reveals no neoplasm of the lung. Patient will require lifelong anticoagulants. He will follow-up with his primary care provider in [place], [place] within 1-2 weeks. He will also be given a follow-up appoint with Dr. Rios at cardiovascular [place] [facility] the [facility] in approximately 1 month to continue to follow his cardiomyopathy. I will further discuss with Dr. Weiner and await additional recommendations. ASSESSMENT/PLAN: 1. ACUTE ON CHRONIC CHF - secondary to systolic dysfunction (EF 15%) and diastolic dysfunction. NYHA Class II. Improved. 2. PNEUMONIA -empiric antibiotics initiated. He will continue to take for 5 days post discharge. 3. LV THROMBUS - Xarelto. 4. NICM - continue beta-abbie, ARB, Spironolactone. 5. ALCOHOLISM - Reinforced importance of alcohol cessation. 6. NON-COMPLIANCE - reiterated the importance of medical compliance and follow- up. He verbalizes understanding. 7. NICOTENE ADDICTION - greater than 5 minutes was spent today discussing the merits of tobacco cessation 8. BILATERAL PULMONARY EMBOLISM - IVC filter was placed approximately 3 months ago when he was found to have bilateral emboli. Patient is being discharged home. I will verify he is on the appropriate dose of Xarelto 15 mg orally twice daily 21 days then 20 mg orally daily. 9. S/P IVC FILTER - continue current plan of care Exam (Progress Note) - Constitutional Vitals: Period Temp Pulse Resp BP Sys/Crystal Pulse Ox Last 24 Hr 97.2 F-98 F 83-89 18-20 114-137/77-87 94-100 Exam: General: [Appears well with no apparent distress.] [Pleasant and cooperative. ] [Appears comfortable.] HEENT: [PERRL, normocephalic, atraumatic. Mucous membranes moist. No jaundice noted. Conjunctiva moist and clear, sclerae anicteric] Neck: No JVD/HJR, no thyromegaly or lymphadenopathy noted. No carotid bruit appreciated Cardiac: [Regular rate and rhythm.] [No murmur rub or gallop.] Lungs: [Clear to auscultation without accessory muscle use to assist the respiratory pattern.] Not requiring oxygen Abdomen: Soft, bowel sounds normoactive. Nontender and nondistended. No abdominal bruit or thrill noted. No masses noted. Musculoskeletal: No fluid collection. Decreased range of motion is noted. Extremities: No clubbing, cyanosis noted. [ No edema noted.] Upper extremity pulses 2+. Lower extremity pulses 2+. Capillary refill less than 3 seconds. Skin: No unusual lesions or rashes. No skin breakdown appreciated. Neuro: Awake, alert and oriented 3. Moves all extremities well without hemiparesis or paralysis. No essential tremor is appreciated. Result/EKG - Labs CBC & BMP: 12/03/16 04:22 12/03/16 04:22 Lab Results: I have reviewed the past 24 hour labs Labs: Laboratory Results - last 24 hr 12/03/16 12/03/16 12/03/16 04:22 04:22 04:22 WBC 6.6 RBC 4.75 Hgb 13.3 L Hct 37.6 L MCV 79.2 L MCH 28 MCHC 35.4 RDW 17.2 Plt Count 406 H MPV 10.3 Neut % (Auto) 51.0 Lymph % (Auto) 32.4 [place] % (Auto) 15.2 H Eos % (Auto) 0.0 Baso % (Auto) 1.1 H Neut # (Auto) 3.4 Lymph # (Auto) 2.1 [place] # (Auto) 1.0 H Eos # (Auto) 0.0 Baso # (Auto) 0.1 Immature Gran % 0.3 Nucleated RBC % 0.0 Immature Gran # 0.02 Nucleated RBCs # 0.00 Immature Plt Fraction 0.0 INR 1.5 PT Patient/Control Mix 16.2 Sodium 141 Potassium 4.3 Chloride 108 H Carbon Dioxide 26 Anion Gap 11.3 BUN 15 Creatinine 0.80 GFR Calculation 153 BUN/Creatinine Ratio 18.00 Glucose 89 Calculated Osmolality 280.3 Calcium 8.7 Magnesium 2.1 - EKG EKG results: interpreted by me EKG shows: sinus rhythm
[2016-12-03] MEDS: DIGOXIN 0.125 MG TABLET PO SCH (13:50)
[2016-12-04 15:51] LABS: TB Ag minue Nil Result 0 IU/mL
== END 2016-12-03 15:25 | disposition home or self-care (01) | DRG 193 ==
LOC: EDBD → EDUNIT# → N.ED 17:12 → N.EDINP 22:38 → SUATTDRO 22:38 → N.TELES 23:25
PROVIDERS: ADMIT Family Medicine; ATTEND Internal Medicine
PROC: IRTHORA (2016-11-28 09:55)

== ENCOUNTER 2017-03-05 10:34 | Inpatient (IN) ==
[2017-03-05] MEDS ORDERED: FUROSEMIDE 100 MG/10 ML VIAL IV STA (11:17)
[2017-03-05] MEDS ORDERED: FUROSEMIDE 40 MG/4 ML VIAL ONE ×2 (11:22)
[2017-03-05 11:45] LABS: Basophils % 0.8 % (0.0-0.8); Eosinophils % 0.8 % (0.00-10.9); Hematocrit 36.9 VOL% (42.0-52.0); Hemoglobin 12.5 GM/DL (14.0-18.0); Immature Granulocytes % 0.3 %; Immature Granulocytes Absolute 0.01 #; Lymphocytes # 1.7 10*3/uL (1.4-4.0); Mean Corpuscular HGB Conc 33.9 GM/DL (32-36); Mean Corpuscular Hemoglobin 28 PG (27-34); Mean Corpuscular Volume 81.8 FL (87-102); Mean Platelet Volume 10.6 FL (9.6-12.0); Monocytes # 0.5 10*3/uL (0.11-0.8); Monocytes % 13.5 % (1.7-12.7); NRBC # 0.02 10*3/uL; Neutrophils # 1.6 10*3/uL (1.4-7.4); Neutrophils % 41.6 % (38.7-73.9); Platelet Count 223 T/CUMM (130-400); Red Blood Count 4.51 MC/CUMM (3.8-5.5); Red Cell Distribution Width 19.5 % (9.3-17.3); White Blood Count 3.9 T/CUMM (4-12)
[2017-03-05 12:27] LABS: Alanine Aminotransferase 35 U/L (16-61); Albumin 2.3 G/DL (3.4-5.0); Alkaline Phosphatase 209 U/L (45-117); Aspartate Amino Transferase 74 U/L (0-37); Blood Urea Nitrogen 18 MG/DL (7-18); Calcium 8.2 MG/DL (8.5-10.1); Glucose 82 MG/DL (74-106); Potassium 5.1 MMOL/L (3.5-5.1); Sodium 136 MMOL/L (136-145); Troponin I Only < 0.015 NG/ML (0.00-0.045)
[2017-03-05] MEDS ORDERED: LEVOFLOXACIN INJ 500 MG in PREMIX 1 EACH IV STA (12:41)
[2017-03-05] MEDS ORDERED: LEVOFLOXACIN INJ 100 ML IV ONE (13:52)
[2017-03-05] MEDS ORDERED: ALBUTEROL 2.5 MG/3 ML NEB RESP TX PRN (14:13)
[2017-03-05] MEDS ORDERED: guaiFENesin/DM ER 600-30 MG TABLET PO PRN (14:13)
[2017-03-05] MEDS ORDERED: MORPHINE 2 MG/1 ML SYRINGE IV PRN (14:13)
[2017-03-05] MEDS ORDERED: ONDANSETRON 4 MG/2 ML VIAL IV PRN (14:13)
[2017-03-05] MEDS ORDERED: diphenhydrAMINE CAP 25 MG CAPSULE PO PRN (14:13)
[2017-03-05] MEDS ORDERED: DOCUSATE SODIUM 100 MG CAPSULE PO PRN (14:13)
[2017-03-05] MEDS ORDERED: ACETAMINOPHEN 325 MG TABLET PO PRN (14:13)
[2017-03-05] MEDS ORDERED: NICOTINE 21 MG/24 HR PATCH TRANSDERM PRN (14:13)
[2017-03-05] MEDS: PANTOPRAZOLE 40 MG TABLET PO SCH (18:31)
[2017-03-05] MEDS: ASPIRIN EC 81 MG TABLET PO SCH (18:31)
[2017-03-05] MEDS: FUROSEMIDE 40 MG/4 ML VIAL IV SCH (18:31)
[2017-03-05] MEDS: CARVEDILOL 6.25 MG TABLET PO SCH (18:31)
[2017-03-05] MEDS: PIPERACILLIN/TAZOBACTAM 3,375 MG in SODIUM CHLORIDE 0.9% 100 ML IV SCH (18:35)
[2017-03-05] MEDS: ALBUTEROL/IPRATROPIUM 3 ML NEB RESP TX SCH (19:27)
[2017-03-05] MEDS: ZALEPLON 5 MG CAPSULE PO PRN (22:19)
[2017-03-06] MEDS: ALBUTEROL/IPRATROPIUM 3 ML NEB RESP TX SCH ×4 (00:01→19:55)
[2017-03-06] MEDS: FUROSEMIDE 40 MG/4 ML VIAL IV SCH ×4 (00:09→16:04)
[2017-03-06] MEDS: PIPERACILLIN/TAZOBACTAM 3,375 MG in SODIUM CHLORIDE 0.9% 100 ML IV SCH ×3 (02:45→18:20)
[2017-03-06 07:31] LABS: Basophils % 0.6 % (0.0-0.8); Hematocrit 34.4 VOL% (42.0-52.0); Hemoglobin 11.6 GM/DL (14.0-18.0); Immature Granulocytes % 0.2 %; Immature Granulocytes Absolute 0.01 #; Lymphocytes # 2.1 10*3/uL (1.4-4.0); Lymphocytes % 44.5 % (21.2-54.2); Mean Corpuscular HGB Conc 33.7 GM/DL (32-36); Mean Corpuscular Hemoglobin 27 PG (27-34); Mean Corpuscular Volume 80.4 FL (87-102); Mean Platelet Volume 10.5 FL (9.6-12.0); Monocytes # 0.7 10*3/uL (0.11-0.8); Monocytes % 14.3 % (1.7-12.7); NRBC # 0.03 10*3/uL; Neutrophils # 1.9 10*3/uL (1.4-7.4); Neutrophils % 40.4 % (38.7-73.9); Platelet Count 203 T/CUMM (130-400); Red Blood Count 4.28 MC/CUMM (3.8-5.5); Red Cell Distribution Width 18.9 % (9.3-17.3); White Blood Count 4.7 T/CUMM (4-12)
[2017-03-06 08:11] LABS: Albumin 2.2 G/DL (3.4-5.0); Bilirubin,Total 1.9 MG/DL (0.2-1.0); Calcium 8.4 MG/DL (8.5-10.1); Magnesium 1.7 MG/DL (1.8-2.4); Osmolality,Calculated 276.7 MOS/KG (273-304); Potassium 3.1 MMOL/L (3.5-5.1); Total Protein 6.4 G/DL (6.4-8.3)
[2017-03-06] MEDS: ASPIRIN EC 81 MG TABLET PO SCH ×2 (09:23→21:11)
[2017-03-06] MEDS: RIVAROXABAN 20 MG TABLET PO SCH (09:23)
[2017-03-06] MEDS: PANTOPRAZOLE 40 MG TABLET PO SCH (09:23)
[2017-03-06] MEDS: CARVEDILOL 6.25 MG TABLET PO SCH ×2 (09:23→21:11)
[2017-03-06] MEDS: SPIRONOLACTONE 25 MG TABLET PO SCH (09:23)
[2017-03-06] MEDS ORDERED: LEVOFLOXACIN INJ 750 MG in PREMIX 1 EACH IV SCH (13:00)
[2017-03-06] MEDS: DIGOXIN 0.125 MG TABLET PO SCH (14:06)
[2017-03-06] MEDS: LORazepam 1 MG TABLET PO SCH ×2 (14:07→21:11)
[2017-03-06] MEDS: POTASSIUM CHLORIDE 20 MEQ TABLET PO SCH (16:03)
[2017-03-06] MEDS: THIAMINE 100 MG TABLET PO SCH (21:11)
[2017-03-07] MEDS: ALBUTEROL/IPRATROPIUM 3 ML NEB RESP TX SCH ×4 (00:29→20:21)
[2017-03-07] MEDS: PIPERACILLIN/TAZOBACTAM 3,375 MG in SODIUM CHLORIDE 0.9% 100 ML IV SCH ×3 (03:34→17:48)
[2017-03-07] MEDS: LORazepam 1 MG TABLET PO SCH ×3 (05:58→23:45)
[2017-03-07 08:45] LABS: Calcium 8.4 MG/DL (8.5-10.1); Osmolality,Calculated 286.1 MOS/KG (273-304); Potassium 3.4 MMOL/L (3.5-5.1)
[2017-03-07] MEDS: SPIRONOLACTONE 25 MG TABLET PO SCH (09:30)
[2017-03-07] MEDS: ASPIRIN EC 81 MG TABLET PO SCH ×2 (09:30→22:16)
[2017-03-07] MEDS: MULTIVITAMIN (BEROCCA) TABLET PO SCH (09:30)
[2017-03-07] MEDS: RIVAROXABAN 20 MG TABLET PO SCH (09:30)
[2017-03-07] MEDS: PANTOPRAZOLE 40 MG TABLET PO SCH (09:31)
[2017-03-07] MEDS: FUROSEMIDE 40 MG/4 ML VIAL IV SCH (09:31)
[2017-03-07] MEDS: CARVEDILOL 6.25 MG TABLET PO SCH ×2 (09:31→22:16)
[2017-03-07] MEDS: POTASSIUM CHLORIDE 20 MEQ TABLET PO SCH (09:31)
[2017-03-07] MEDS: THIAMINE 100 MG TABLET PO SCH ×2 (09:31→22:19)
[2017-03-07] MEDS: hydrALAZINE 10 MG TABLET PO SCH ×2 (09:37→22:16)
[2017-03-07] MEDS: LEVOFLOXACIN 750 MG TABLET PO SCH (13:13)
[2017-03-07] MEDS: DIGOXIN 0.125 MG TABLET PO SCH (13:13)
[2017-03-08] MEDS: PIPERACILLIN/TAZOBACTAM 3,375 MG in SODIUM CHLORIDE 0.9% 100 ML IV SCH ×2 (01:33→12:13)
[2017-03-08] MEDS: ZALEPLON 5 MG CAPSULE PO PRN (01:39)
[2017-03-08] MEDS: ALBUTEROL/IPRATROPIUM 3 ML NEB RESP TX SCH ×2 (02:04→07:26)
[2017-03-08 04:50] LABS: Basophils % 0.6 % (0.0-0.8); Eosinophils % 0.4 % (0.00-10.9); Hemoglobin 11.4 GM/DL (14.0-18.0); Immature Granulocytes % 0.2 %; Immature Granulocytes Absolute 0.01 #; Lymphocytes # 1.8 10*3/uL (1.4-4.0); Lymphocytes % 34.4 % (21.2-54.2); Mean Corpuscular HGB Conc 33.5 GM/DL (32-36); Mean Corpuscular Hemoglobin 27 PG (27-34); Mean Corpuscular Volume 80.6 FL (87-102); Mean Platelet Volume 11.2 FL (9.6-12.0); Monocytes # 0.6 10*3/uL (0.11-0.8); Monocytes % 12.2 % (1.7-12.7); NRBC # 0.03 10*3/uL; Neutrophils # 2.7 10*3/uL (1.4-7.4); Neutrophils % 52.2 % (38.7-73.9); Platelet Count 235 T/CUMM (130-400); Red Blood Count 4.22 MC/CUMM (3.8-5.5); Red Cell Distribution Width 19.2 % (9.3-17.3); White Blood Count 5.1 T/CUMM (4-12)
[2017-03-08 05:32] LABS: Bilirubin,Total 1.1 MG/DL (0.2-1.0); Calcium 8.2 MG/DL (8.5-10.1); Magnesium 1.7 MG/DL (1.8-2.4); Osmolality,Calculated 283.3 MOS/KG (273-304); Phosphorous 3.8 MG/DL (2.5-4.9); Potassium 4.1 MMOL/L (3.5-5.1)
[2017-03-08] MEDS: LORazepam 1 MG TABLET PO SCH (05:43)
[2017-03-08 06:46] LABS: Eosinophils 1 % (0-10); Hypochromasia 2+; Lymphocytes 37 % (20-55); Segmented Neutrophils 52 % (50-85); Total Cells Counted 100
[2017-03-08 06:47] LABS: Microcytosis 1+; Platelet Estimate Adequate; Target Cells Slight
[2017-03-08] MEDS: SPIRONOLACTONE 25 MG TABLET PO SCH (09:24)
[2017-03-08] MEDS: THIAMINE 100 MG TABLET PO SCH (09:24)
[2017-03-08] MEDS: RIVAROXABAN 20 MG TABLET PO SCH (09:24)
[2017-03-08] MEDS: hydrALAZINE 10 MG TABLET PO SCH (09:24)
[2017-03-08] MEDS: MULTIVITAMIN (BEROCCA) TABLET PO SCH (09:24)
[2017-03-08] MEDS: LEVOFLOXACIN 750 MG TABLET PO SCH (09:24)
[2017-03-08] MEDS: POTASSIUM CHLORIDE 20 MEQ TABLET PO SCH (09:25)
[2017-03-08] MEDS: FUROSEMIDE 40 MG/4 ML VIAL IV SCH (09:25)
[2017-03-08] MEDS: CARVEDILOL 6.25 MG TABLET PO SCH (09:25)
[2017-03-08] MEDS: PANTOPRAZOLE 40 MG TABLET PO SCH (09:25)
[2017-03-08] MEDS: ASPIRIN EC 81 MG TABLET PO SCH (09:25)
[2017-03-08 11:15] VITALS: BP 111/93
== END 2017-03-08 13:10 | disposition home or self-care (01) | DRG 291 ==
LOC: N.ED 10:34 → N.EDINP 14:16 → SUATTDRO 14:16 → N.EDINP 17:00 → N.5E 17:53
PROVIDERS: ATTEND Hospitalist